=== PATIENT | male | born 1940 | race Caucasian/White ===

== ENCOUNTER 2020-10-30 08:38 | Emergency (ER) | payer MEDICARE, SELFPAY ==
[2020-10-30] VITALS (17 sets, daily range): BP systolic 131–179; BP diastolic 72–121; PULSE 55–94; RESP 12–30; TEMP 36.6–36.7; O2SAT 99–100
--- NOTE | 2020-10-30 08:54 | ED.GENADULT ---
HPI - General Adult General Chief complaint: Arrhythmia/Palpitations Stated complaint: Heart Palpitations Time Seen by Provider: 10/30/20 08:54 History of Present Illness HPI narrative: 77-year-old gentleman lives on [facility] with a history of hyperlipidemia and reflux who denies any history of heart failure, myocardial infarction. He has been having increasing palpitations recently and was seen by his primary care physician at the [facility] in [place] with a Holter monitor placed with results indicating no significant pathology. A cardiology consult has been generated. Presents today complaining of being awakened from sleep at 2:00 a.m. with palpitations that have intermittently continued throughout the morning. He describes no specific pain dizziness orthopnea or dyspnea. He has not had recent fevers cough or chills. He describes no abdominal pain, fevers cough, chills, urinary abnormalities or constipation. Related Data Home Medications Medication Instructions Recorded Confirmed aspirin 81 mg tablet,delayed 81 mg PO DAILY 02/21/19 10/30/20 release (Adult Aspirin Regimen) pravastatin 20 mg tablet 20 mg PO DAILY 02/21/19 10/30/20 omeprazole 40 mg capsule,delayed 40 mg PO QAM 10/30/20 10/30/20 release Previous Rx's Medication Instructions Recorded metoprolol tartrate 25 mg tablet 12.5 mg PO BID PRN #20 tab 10/30/20 Allergies Allergy/AdvReac Type Severity Reaction Status Date / Time No Known Drug Allergies Allergy Verified 02/21/19 14:51 Review of Systems Review of Systems Narrative: Remainder of complete review of systems is otherwise unremarkable except for that included in the HPI. Patient History Medical History (Updated 10/30/20 @ 13:07 by Maggie Gentile MD) GERD (gastroesophageal reflux disease) High cholesterol Social History Smoking Status: Former smoker Exam Narrative Exam Narrative: General: Healthy appearing, in no acute distress. Able to give a complete and coherent history. Well-nourished well-developed HEENT: Moist mucous membranes, normal sclera with reactive pupils, Neck: No JVD, supple Respiratory: Lungs are clear to auscultation, no wheezing no rales no rhonchi. Full and symmetrical air movement Cardiac: Irregular with multiple PVCs no murmurs no bruits Abdomen: Soft, nontender, good bowel tones, no flank pain Skin: Warm and dry, no rashes Neurologic: Grossly neurologically intact with no obvious asymmetries or abnormalities Extremities: No trauma, well perfused Psych: Cooperative, appropriate insight and affect Initial Vital Signs Initial Vital Signs: Vital Signs Blood Pressure 176/104 H 10/30/20 08:43 Course Orders Ordered: ED Orders 10/30/20 08:55 XR chest 1V Stat 10/30/20 11:57 Complete Blood Count AUTO DIFF Stat Comprehensive Metabolic Panel Stat Magnesium Stat Troponin I Stat Discontinued Medications Metoprolol Tartrate (Metoprolol Tartrate 5 Mg/5 Ml Inj) 5 mg IV Q5M MADIHA Stop: 10/30/20 09:11 Last Admin: 10/30/20 11:35 Dose: Not Given Documented by: Admin: 10/30/20 11:35 Dose: Not Given Documented by: Admin: 10/30/20 09:29 Dose: 5 mg Documented by: FAITH Vital Signs Vital signs: Vital Signs - 8 hr 10/30/20 08:43 10/30/20 08:44 10/30/20 08:45 Temperature 97.8 F Pulse Rate 94 H 90 Respiratory Rate 12 12 Blood Pressure 176/104 H 176/104 H Pulse Oximetry 100 100 10/30/20 08:50 10/30/20 09:00 10/30/20 09:01 Temperature 98.0 F Pulse Rate 79 84 80 Respiratory Rate 14 22 24 Blood Pressure 152/77 H 152/77 H Pulse Oximetry 99 99 10/30/20 09:30 10/30/20 09:32 10/30/20 10:00 Temperature Pulse Rate 80 67 59 L Respiratory Rate 27 H 30 H 23 Blood Pressure 153/121 H 165/83 H 179/81 H Pulse Oximetry 99 99 99 10/30/20 10:30 10/30/20 11:00 10/30/20 11:01 Temperature Pulse Rate 56 L 55 L 56 L Respiratory Rate 20 16 19 Blood Pressure 166/76 H 159/79 H Pulse Oximetry 99 99 99 10/30/20 11:37 10/30/20 12:00 10/30/20 12:30 Temperature Pulse Rate 57 L 66 61 Respiratory Rate 23 22 23 Blood Pressure Pulse Oximetry Medical Decision Making Lab Data Result diagrams: 10/30/20 11:57 10/30/20 11:57 Labs: Lab Results 10/30/20 10/30/20 Range/Units 11:57 11:57 WBC 4.0 L (4.5-11.0) X10^3/uL RBC 4.87 (4.5-5.9) X10^6/uL Hgb 15.5 (13.5-17.5) g/dL Hct 45.4 (41-53) % MCV 93.1 (80-100) fL MCH 31.7 (26-34) PG MCHC 34.1 (30-36) % RDW 13.1 (11.6-14.8) % Plt Count 187 (150-400) X10^3/uL Neut % (Auto) 56.5 (50-75) % Lymph % (Auto) 30.7 (25-40) % [place] % (Auto) 11.2 (3-14) % Eos % (Auto) 0.9 L (2-4) % Baso % (Auto) 0.7 (0-2) % Neut # (Auto) 2300 (1954-2511) /uL Lymph # (Auto) 1200 (2463-5809) /uL [place] # (Auto) 400 (0-900) /uL Eos # (Auto) 0 (0-450) /uL Baso # (Auto) 0 (0-100) /uL Sodium 139 (137-145) mmol/L Potassium 4.7 (3.4-5.1) mmol/L Chloride 104 (98-107) mmol/L Carbon Dioxide 30 (22-32) mmol/L BUN 14 (9-20) mg/dL Creatinine 0.76 (0.66-1.25) mg/dL Estimated GFR > 60.0 (>60) mL/min BUN/Creatinine Ratio 18.4 (6-22) Glucose 107 (80-110) mg/dL Calcium 9.1 (8.4-10.2) mg/dL Magnesium 1.9 (1.6-2.3) mg/dL Total Bilirubin 0.7 (0.2-1.3) mg/dL AST 27 (17-59) IU/L ALT 17 (<50) IU/L Alkaline Phosphatase 62 (38-126) U/L Troponin I < 0.012 (0.01-0.034) ng/mL Total Protein 7.2 (6.3-8.2) g/dL Albumin 4.2 (3.5-5.0) g/dL Globulin 3.0 (1.7-4.1) g/dL Albumin/Globulin Ratio 1.4 (1.0-2.8) Imaging Data Chest x-ray: Radiologist's Impression: FINDINGS: Surgical changes and devices: None. Lungs and pleura: An incomplete inspiratory result is noted, causing a crowded appearance to the lung markings. No focal infiltrates are seen. No pneumothorax or significant pleural effusions are seen. Mediastinum: The cardiac contours are within normal limits. The aorta demonstrates calcification and tortuosity. Bones and chest wall: No suspicious bony lesions. Age-appropriate bony degenerative changes are seen. Mild levoconvex scoliotic curvature is noted. Remote left posterior rib fractures can be seen. Remote, healed bilateral mid clavicle fractures. Overlying soft tissues appear unremarkable. IMPRESSION: Limited portable chest examination, without a significant cardiopulmonary abnormality identified. Dictated by: Meliton Pizarro M.D. on 10/30/2020 at 8:14 ECG Data Interpretation: Sinus rhythm at a rate of 90 Frequent PVCs, at times bigeminy Nonspecific ST T wave abnormality MDM Narrative Medical decision making narrative: 80-year-old gentleman with palpitations since 2:00 a.m.. No actual chest pain. Noted to have frequent to very frequent PVCs. Workup is reassuring with no evidence of acute coronary syndrome or electrolyte abnormalities. No signs of congestive heart failure. He responded very well to 5 mg of IV metoprolol and the frequency of his PVCs has dramatically decreased. He is quite comfortable and is requesting home discharge. I do believe this is safe. Will give him a prescription for metoprolol 25 mg immediate release to use as needed significant palpitations. Will ask him to follow-up with his primary care physician. Discharge Plan Departure Patient Disposition: Home Clinical Impression: Ventricular premature beats Instructions: Premature Ventricular Beats Activity Restrictions/Additional Instructions: Thank you for coming in today Your having frequent PVCs, premature ventricular contractions, this is not a life-threatening rhythm abnormality. Your blood work was very reassuring. Your electrolytes, kidney function and studies looking for any type of heart attack or all negative. The x-ray of your chest was equally reassuring. Your responded very well to a small dose of metoprolol. This is a blood pressure and heart rate medication. I am going to give you a prescription for oral metoprolol to use only if you have recurrent episodes of palpitations. I would start with half a pill if you are symptomatic. A prescription for this was electronically transmitted to [facility] in [place]. I have given you a copy of your EKG to share with your primary care doctor or with the primer expeditor and drier to whom you have recently been referred If you have recurrent episodes, pain or shortness of breath associated with sweatiness please feel free to return to the ER and I am happy to re-evaluate Prescriptions: New metoprolol tartrate 25 mg tablet 12.5 mg PO BID PRN (Reason: palpitations ) Qty: 20 RF: 0 No Action pravastatin 20 mg tablet 20 mg PO DAILY RF: 0 aspirin [Adult Aspirin Regimen] 81 mg tablet,delayed release (DR/EC) 81 mg PO DAILY RF: 0 omeprazole 40 mg Capsule,Delayed Release(Dr/Ec) 40 mg PO QAM RF: 0
[2020-10-30] MEDS: METOPROLOL TARTRATE 5 MG/5 ML INJ IV (09:29)
[2020-10-30 12:02] LABS: Add Manual Diff / Slide Review NO; Basophils Absolute Auto 0 /uL (0-100); Basophils Percent Auto 0.7 % (0-2); Eosinophils Absolute Auto 0 /uL (0-450); Eosinophils Percent Auto 0.9 % (2-4); Hematocrit 45.4 % (41-53); Hemoglobin 15.5 g/dL (13.5-17.5); Lymphocytes Absolute Auto 1200 /uL (1100-4500); Lymphocytes Percent Auto 30.7 % (25-40); Mean Corpuscular HGB Conc 34.1 % (30-36); Mean Corpuscular Hemoglobin 31.7 PG (26-34); Mean Corpuscular Volume 93.1 fL (80-100); Monocytes Absolute Auto 400 /uL (0-900); Monocytes Percent Auto 11.2 % (3-14); Neutrophils Absolute Auto 2300 /uL (1500-7000); Neutrophils Percent Auto 56.5 % (50-75); Platelet Count 187 X10^3/uL (150-400); Red Blood Cell Count 4.87 X10^6/uL (4.5-5.9); Red Cell Distribution Width 13.1 % (11.6-14.8)
[2020-10-30 12:33] LABS: Alanine Aminotransferase 17 IU/L (<50); Albumin 4.2 g/dL (3.5-5.0); Albumin Globulin Ratio 1.4 (1.0-2.8); Alkaline Phosphatase 62 U/L (38-126); Aspartate Aminotransferase 27 IU/L (17-59); BUN Creatinine Ratio 18.4 (6-22); Bilirubin Total 0.7 mg/dL (0.2-1.3); Blood Urea Nitrogen 14 mg/dL (9-20); Calcium 9.1 mg/dL (8.4-10.2); Carbon Dioxide 30 mmol/L (22-32); Chloride 104 mmol/L (98-107); Estimated Glomerular Filt Rate > 60.0 mL/min (>60); Glucose 107 mg/dL (80-110); HEMOLYSIS < 15 (0-50); Magnesium 1.9 mg/dL (1.6-2.3); Potassium 4.7 mmol/L (3.4-5.1); Sodium 139 mmol/L (137-145); Total Protein 7.2 g/dL (6.3-8.2)
[2020-10-30 12:43] LABS: Troponin I < 0.012 ng/mL (0.01-0.034)
== END 2020-10-30 13:17 | disposition home or self-care (01) ==
PROVIDERS: Emergency Provider Emergency Medicine
DX: I49.3 Ventricular premature depolarization (principal); I25.2 Old myocardial infarction
CPT/HCPCS: 36415; 71045; 80053; 83735; 84484; 85025; 93005; 99284

== ENCOUNTER → 2022-01-21 09:49 | Outpatient (CLI) | payer OTHER, SELFPAY ==
[2022-01-21 11:02] LABS: Add Manual Diff / Slide Review NO; Basophils Absolute Auto 0 /uL (0-100); Basophils Percent Auto 0.7 % (0-2); Eosinophils Absolute Auto 200 /uL (0-450); Hematocrit 44.5 % (41-53); Hemoglobin 14.9 g/dL (13.5-17.5); Lymphocytes Absolute Auto 2000 /uL (1100-4500); Lymphocytes Percent Auto 40.2 % (25-40); Mean Corpuscular HGB Conc 33.5 % (30-36); Mean Corpuscular Hemoglobin 31.3 PG (26-34); Mean Corpuscular Volume 93.5 fL (80-100); Monocytes Absolute Auto 600 /uL (0-900); Monocytes Percent Auto 11.9 % (3-14); Neutrophils Absolute Auto 2200 /uL (1500-7000); Neutrophils Percent Auto 44.2 % (50-75); Platelet Count 216 X10^3/uL (150-400); Red Blood Cell Count 4.76 X10^6/uL (4.5-5.9); Red Cell Distribution Width 13.1 % (11.6-14.8)
[2022-01-21 11:25] LABS: Alanine Aminotransferase 17 IU/L (<50); Albumin 4.2 g/dL (3.5-5.0); Albumin Globulin Ratio 1.3 (1.0-2.8); Alkaline Phosphatase 65 U/L (38-126); Aspartate Aminotransferase 22 IU/L (17-59); BUN Creatinine Ratio 19.4 (6-22); Bilirubin Total 0.7 mg/dL (0.2-1.3); Blood Urea Nitrogen 18 mg/dL (9-20); Calcium 9.1 mg/dL (8.4-10.2); Carbon Dioxide 29 mmol/L (22-32); Chloride 102 mmol/L (98-107); Cholesterol 191 mg/dL (140-199); Estimated Glomerular Filt Rate > 60 mL/min (>60); Globulin 3.2 g/dL (1.7-4.1); Glucose 96 mg/dL (80-110); HDL Cholesterol 47 mg/dL (40-60); HEMOLYSIS < 15 (0-50); LDL Cholesterol Calculated 127 mg/dL (<100); Potassium 4.2 mmol/L (3.4-5.1); Sodium 138 mmol/L (137-145); Total Protein 7.4 g/dL (6.3-8.2); Triglycerides 86 mg/dL (35-150)
[2022-01-21 11:45] LABS: Prostate Specific Antigen 4.03 ng/mL (0.10-4.00)
== END ==
PROVIDERS: PCP Family Medicine; Referring Provider Family Medicine; Visit Provider Family Medicine
DX: E78.00 Pure hypercholesterolemia, unspecified (principal); N40.1 Benign prostatic hyperplasia with lower urinary tract symptoms; I10 Essential (primary) hypertension; K21.9 Gastro-esophageal reflux disease without esophagitis; N13.8 Other obstructive and reflux uropathy
CPT/HCPCS: 36415; 80053; 80061; 84153; 85025

== ENCOUNTER → 2022-01-28 10:19 | Outpatient (CLI) | payer OTHER, SELFPAY ==
[2022-01-28 17:01] LABS: Prostate Specific Antigen 4.47 ng/mL (0.10-4.00)
== END ==
PROVIDERS: PCP Family Medicine; Referring Provider Family Medicine; Visit Provider Family Medicine
DX: N40.1 Benign prostatic hyperplasia with lower urinary tract symptoms (principal); N13.8 Other obstructive and reflux uropathy
CPT/HCPCS: 36415; 84153

== ENCOUNTER → 2022-01-31 12:28 | Outpatient (CLI) | payer OTHER, SELFPAY ==
[2022-01-31 16:03] LABS: Appearance Urine UA CLEAR; Bilirubin Urine UA NEGATIVE (NEGATIVE); Color Urine UA YELLOW; Glucose Urine UA NEGATIVE (Negative); Ketones Urine UA NEGATIVE (NEGATIVE); Leukocyte Esterase Urine UA NEGATIVE (NEGATIVE); Nitrite Urine UA NEGATIVE (Negative); Occult Blood Urine UA NEGATIVE (Negative); Protein Urine UA 1+ (Negative); Urobilinogen Urine UA 0.2 E.U./dL (0.2); pH Urine UA 6.5 (4.5-8.0)
[2022-01-31 16:30] LABS: Bacteria Urine None Seen; Culture Indicated Urine Cult Not Indicated; RBC Urine None Seen (0-5/HPF); Squamous Epithelial Cell Urine None Seen (0-5/HPF); WBC Urine None Seen (0-5/HPF)
== END ==
PROVIDERS: PCP Family Medicine; Referring Provider Internal Medicine; Visit Provider Internal Medicine
DX: N13.8 Other obstructive and reflux uropathy (principal); N40.1 Benign prostatic hyperplasia with lower urinary tract symptoms; R97.20 Elevated prostate specific antigen [PSA]
CPT/HCPCS: 81001

== ENCOUNTER → 2022-02-19 11:55 | Outpatient (CLI) | payer OTHER, SELFPAY ==
[2022-02-20 10:22] LABS: PSA Free % 16.4 % (.); PSA, Total 3.3 ng/mL (0.0-4.0)
== END ==
PROVIDERS: PCP Family Medicine; Referring Provider Internal Medicine; Visit Provider Internal Medicine
DX: R97.20 Elevated prostate specific antigen [PSA] (principal)
CPT/HCPCS: 36415; 84153; 84154

== ENCOUNTER → 2022-06-09 08:34 | Outpatient (CLI) | payer OTHER, SELFPAY ==
[2022-06-09 09:06] LABS: Add Manual Diff / Slide Review NO; Basophils Absolute Auto 0 /uL (0-100); Basophils Percent Auto 0.6 % (0-2); Eosinophils Absolute Auto 100 /uL (0-450); Eosinophils Percent Auto 2.4 % (2-4); Hematocrit 43.8 % (41-53); Lymphocytes Absolute Auto 2100 /uL (1100-4500); Mean Corpuscular HGB Conc 34.2 % (30-36); Mean Corpuscular Hemoglobin 31.5 PG (26-34); Mean Corpuscular Volume 92.2 fL (80-100); Monocytes Absolute Auto 700 /uL (0-900); Monocytes Percent Auto 12.7 % (3-14); Neutrophils Absolute Auto 2700 /uL (1500-7000); Neutrophils Percent Auto 47.3 % (50-75); Platelet Count 201 X10^3/uL (150-400); Red Blood Cell Count 4.75 X10^6/uL (4.5-5.9); White Blood Cell Count 5.8 X10^3/uL (4.5-11.0)
[2022-06-09 09:16] LABS: Alanine Aminotransferase 17 IU/L (<50); Albumin 3.8 g/dL (3.5-5.0); Albumin Globulin Ratio 1.1 (1.0-2.8); Alkaline Phosphatase 65 U/L (38-126); Aspartate Aminotransferase 19 IU/L (17-59); BUN Creatinine Ratio 24.7 (6-22); Bilirubin Total 0.7 mg/dL (0.2-1.3); Blood Urea Nitrogen 21 mg/dL (9-20); Carbon Dioxide 31 mmol/L (22-32); Chloride 100 mmol/L (98-107); Estimated Glomerular Filt Rate > 60 mL/min (>60); Globulin 3.4 g/dL (1.7-4.1); Glucose 98 mg/dL (80-110); HEMOLYSIS < 15 (0-50); Potassium 4.4 mmol/L (3.4-5.1); Sodium 136 mmol/L (137-145); Total Protein 7.2 g/dL (6.3-8.2)
[2022-06-09 09:44] LABS: Prostate Specific Antigen Scrn 4.48 ng/mL (0.1-4.0)
== END ==
PROVIDERS: PCP Family Medicine; Referring Provider Family Medicine; Visit Provider Family Medicine
DX: R97.20 Elevated prostate specific antigen [PSA] (principal); Z12.5 Encounter for screening for malignant neoplasm of prostate; I10 Essential (primary) hypertension; N13.8 Other obstructive and reflux uropathy; N40.1 Benign prostatic hyperplasia with lower urinary tract symptoms
CPT/HCPCS: 36415; 80053; 85025; G0103

== ENCOUNTER → 2022-07-31 16:47 | Outpatient (CLI) | payer OTHER, SELFPAY ==
--- NOTE | 2022-07-31 16:50 | DI.MRI.S_ITS ---
PROCEDURE: MR PELVIC PROSTATE PROTOCOL INDICATIONS: elevated PSA. BPH TECHNIQUE: Coronal HASTE, axial T1 FSE with fat saturation, 3-plane nonbreath-hold T2 FSE. After the administration of contrast, dynamic axial, delayed axial and coronal VIBE or 2-D FLASH with fat saturation through the pelvis. Optional diffusion weighted imaging and ADC may be performed. COMPARISON: None. FINDINGS: Image quality: Mild distortion is seen due to metallic artifact, however overall images remain diagnostic. Prostate: Gland size is 5 x 6.3 x 6.4 cm. Estimated volume is 105 cc. Transitional zone heterogenous nodules are present, either well encapsulated or mostly encapsulated, compatible with PI-RADS 1 or 2 likely BPH nodules. The prostate peripheral zones compressed by the transitional zone. Genitourinary system: Bladder is under distended and mildly trabeculated, most commonly due to chronic obstruction, although this would be better evaluated with cystoscopy. Prostatic urethra is deviated to the left. Bowel and peritoneum: There are colonic diverticula. The rectum appears unremarkable. No evidence of bowel obstruction or pathologic ascites. Nodes and vessels: No evidence of pathologic adenopathy or aneurysmal vessel in the pelvis. Soft tissues: Unremarkable pelvic wall. Bones: Right femoral hardware. No acute or suspicious osseous finding identified. There are degenerative changes. IMPRESSION: Prostatomegaly and sequela of BPH. PI-RADS 2. Other findings as above. Dictated by: Anthony Britton M.D. on 08/01/2022 at 8:36 Approved by: Anthony Britton M.D. on 08/01/2022 at 8:41
== END ==
PROVIDERS: PCP Family Medicine; Referring Provider Urology; Visit Provider Urology
DX: N40.1 Benign prostatic hyperplasia with lower urinary tract symptoms (principal); N13.8 Other obstructive and reflux uropathy; R97.20 Elevated prostate specific antigen [PSA]; N32.89 Other specified disorders of bladder; K57.90 Diverticulosis of intestine, part unspecified, without perforation or abscess without bleeding
CPT/HCPCS: 72197; A9579

== ENCOUNTER → 2022-12-23 13:29 | Outpatient (CLI) | payer OTHER, SELFPAY ==
[2022-12-23 14:51] LABS: Appearance Urine UA CLEAR; Bilirubin Urine UA NEGATIVE (NEGATIVE); Color Urine UA YELLOW; Glucose Urine UA NEGATIVE (Negative); Ketones Urine UA TRACE (NEGATIVE); Leukocyte Esterase Urine UA NEGATIVE (NEGATIVE); Nitrite Urine UA NEGATIVE (Negative); Occult Blood Urine UA NEGATIVE (Negative); Protein Urine UA NEGATIVE (Negative); Specific Gravity Urine UA 1.015 (1.000-1.035); pH Urine UA 6.5 (4.5-8.0)
[2022-12-23 14:53] LABS: Bacteria Urine None Seen; Culture Indicated Urine Cult Not Indicated; RBC Urine None Seen (0-5/HPF); Squamous Epithelial Cell Urine None Seen (0-5/HPF); WBC Urine None Seen (0-5/HPF)
[2022-12-25 09:40] LABS: PSA Free % 22.6 % (.)
== END ==
PROVIDERS: PCP Family Medicine; Referring Provider Urology; Visit Provider Urology
DX: R97.20 Elevated prostate specific antigen [PSA] (principal); N40.0 Benign prostatic hyperplasia without lower urinary tract symptoms
CPT/HCPCS: 36415; 81001; 84153; 84154

== ENCOUNTER → 2023-01-21 13:32 | Outpatient (CLI) | payer OTHER, SELFPAY ==
[2023-01-21 14:49] LABS: Hemoglobin A1C% w Est Avg Glu 5.4 % (4.0-6.0)
[2023-01-21 15:04] LABS: C-Reactive Protein Quant < 0.5 mg/dL (<1.0)
[2023-01-21 15:30] LABS: TSH w/ Reflex to FT4 2.08 uIU/mL (0.47-4.68)
[2023-01-21 15:49] LABS: Vitamin B12 307 pg/mL (239-931)
[2023-01-23 10:22] LABS: RPR Screen Non Reactive (Non Reactive)
[2023-01-26 15:55] LABS: ANA Screen, IFA Negative (.)
[2023-01-26 16:56] LABS: Albumin 3.6 g/dL (2.9-4.4); Alpha-1-Globulin 0.3 g/dL (0.0-0.4); Alpha-2-Globulin 0.8 g/dL (0.4-1.0); Gamma Globulin 1.2 g/dL (0.4-1.8); Globulin Total 3.4 g/dL (2.2-3.9)
== END ==
PROVIDERS: PCP Family Medicine; Referring Provider Nurse Practitioner; Visit Provider Nurse Practitioner
DX: G60.9 Hereditary and idiopathic neuropathy, unspecified (principal)
CPT/HCPCS: 36415; 82607; 83036; 84155; 84165; 84443; 86038; 86140; 86592

== ENCOUNTER → 2023-02-05 13:47 | Outpatient (CLI) | payer OTHER, SELFPAY ==
--- NOTE | 2023-02-05 12:00 | DI.MRI.S_ITS ---
PROCEDURE: MR LUMBAR SPINE WO CON INDICATIONS: Peripheral Neuropathy - suspect spinal stenosis TECHNIQUE: Noncontrast sagittal T1 spin echo and T2 fast echo, sagittal STIR, and T2 fast spin echo through the lumbar spine. In cases with scoliosis, additional coronal T2 fast spin echo may be performed. COMPARISON: None. FINDINGS: Image quality: Excellent. Alignment and Curvature: There is normal bony alignment. Bone Marrow: Multilevel chronic degenerative endplate changes. Edematous Modic type 1 degenerative endplate changes noted at L1-2, L3-4 and L5-S1. L1 wedge-shaped anterior height loss with marrow edema consistent with subacute compression fracture. No retropulsed fracture fragment. T11 vertebral body typical hemangioma. Spinal Cord: Conus medullaris terminates at the L1 level. Visualized cord demonstrates normal signal and size. Paraspinous Soft Tissues: No paravertebral masses. T12-L1: Degenerative changes without central or foraminal stenosis L1-L2: Disc space narrowing hypertrophic facet joints present. Mild central stenosis. Moderate bilateral foraminal stenosis L2-L3: Disc space narrowing with hypertrophic facet joints. Mild central stenosis. Moderate bilateral foraminal stenosis L3-L4: Disc space narrowing and circumferential disc bulge and hypertrophic facet joints. Moderate central stenosis. Moderate bilateral foraminal stenosis. L4-L5: Disc space narrowing with circumferential disc bulge present. Mild central stenosis. Moderate bilateral foraminal stenosis L5-S1: Disc space narrowing and circumferential disc bulge with mild central stenosis. Moderate left and severe right foraminal stenosis IMPRESSION: Multilevel degenerative disc disease and arthropathy results in varying degrees of central and foraminal stenosis including moderate central stenosis L3-4 and severe foraminal stenosis L5-S1 Subacute L1 compression fracture without retropulsed fracture fragment Approved by: Mark Price M.D. on 02/05/2023 at 16:12
== END ==
PROVIDERS: PCP Family Medicine; Referring Provider Physician Assistant; Visit Provider Physician Assistant
DX: G62.9 Polyneuropathy, unspecified (principal); M48.56XA Collapsed vertebra, not elsewhere classified, lumbar region, initial encounter for fracture; M48.062 Spinal stenosis, lumbar region with neurogenic claudication; M48.07 Spinal stenosis, lumbosacral region; M47.816 Spondylosis without myelopathy or radiculopathy, lumbar region; M51.36 Other intervertebral disc degeneration, lumbar region; M51.37 Other intervertebral disc degeneration, lumbosacral region; Z87.828 Personal history of other (healed) physical injury and trauma
CPT/HCPCS: 72148

== ENCOUNTER → 2023-03-02 10:06 | Outpatient (CLI) | payer OTHER, SELFPAY ==
--- NOTE | 2023-03-02 10:09 | DI.RAD.S_ITS ---
PROCEDURE: XR LUMBAR SPINE MIN 4V INDICATIONS: LOW BACK PAIN TECHNIQUE: 5 views of the lumbar spine were acquired, including bilateral oblique views. COMPARISON: [facility], MR, MR LUMBAR SPINE WO CON, 02/05/2023, 14:15. FINDINGS: Bones: 5 nonrib-bearing vertebrae are present. There is normal bony alignment. Previously seen mild L1 compression fracture appears less prominent radiographically. No suspicious bony lesions. Multilevel disc space narrowing degenerative endplate changes and multilevel facet hypertrophy are again seen throughout the lumbar spine. Orthopedic hardware is seen in the right proximal femur. Soft tissues: Overlying bowel gas pattern is normal. Aortic atherosclerotic calcifications are present. Oblique images: No pars defects. IMPRESSION: 1. Multilevel moderate to severe spondylosis. 2. L1 compression fracture appears less prominent on radiographs when compared to the MRI from 02/05/2023. No new compression fracture is seen. Approved by: Sundar Godoy M.D. on 03/02/2023 at 12:52
== END ==
PROVIDERS: PCP Family Medicine; Referring Provider Anesthesiology; Visit Provider Anesthesiology
DX: M48.062 Spinal stenosis, lumbar region with neurogenic claudication (principal); M47.26 Other spondylosis with radiculopathy, lumbar region; M51.16 Intervertebral disc disorders with radiculopathy, lumbar region; M48.56XA Collapsed vertebra, not elsewhere classified, lumbar region, initial encounter for fracture; G62.9 Polyneuropathy, unspecified
CPT/HCPCS: 72110; 99214

== ENCOUNTER → 2023-03-12 12:26 | Outpatient (CLI) | payer OTHER, SELFPAY ==
--- NOTE | 2023-03-12 12:27 | DI.RAD.S_ITS ---
PROCEDURE: XR CHEST 2V INDICATIONS: c/o L) upper chest ache bothersome TECHNIQUE: 2 views of the chest were acquired. COMPARISON: [facility], CR, XR CHEST 1V, 10/30/2020, 8:57. FINDINGS: Surgical changes and devices: None. Lungs and pleura: Lungs are clear. No pleural effusions or pneumothorax. Mediastinum: Mediastinal contours are normal. Heart size is normal. Bones and chest wall: No suspicious bony abnormalities. Soft tissues appear unremarkable. Upper thoracic kyphoplasty. IMPRESSION: No acute cardiopulmonary abnormality is seen. Dictated by: Trevon Zepeda M.D. on 03/12/2023 at 13:28 Approved by: Trevon Zepeda M.D. on 03/12/2023 at 13:31
== END ==
PROVIDERS: PCP Family Medicine; Referring Provider Family Medicine; Visit Provider Family Medicine
DX: R07.89 Other chest pain (principal)
CPT/HCPCS: 71046

== ENCOUNTER → 2023-04-02 09:21 | Outpatient (CLI) | payer OTHER, SELFPAY | LOC: PHYS 09:22 | PROVIDERS: Family Provider Family Medicine; PCP Family Medicine; Referring Provider Anesthesiology; Visit Provider Anesthesiology | DX: M54.16 Radiculopathy, lumbar region (principal); G62.9 Polyneuropathy, unspecified | CPT/HCPCS: 95886; 95910 ==

== ENCOUNTER → 2023-04-07 14:06 | Outpatient (CLI) | payer OTHER, SELFPAY ==
[2023-04-10 14:08] LABS: PSA Free % 18.6 % (.); PSA, Total 3.5 ng/mL (0.0-4.0)
== END ==
PROVIDERS: Family Provider Family Medicine; PCP Family Medicine; Referring Provider Urology; Visit Provider Urology
DX: R97.20 Elevated prostate specific antigen [PSA] (principal)
CPT/HCPCS: 84153; 84154

== ENCOUNTER 2023-06-15 13:09 | Day surgery (SDC) | payer OTHER, SELFPAY ==
--- NOTE | 2023-06-15 | PATH_ITS ---
[facility] Accession Number: [id number] No. of containers..02 Tissue . 01 Material submitted: . PART A: stomach - ANTRUM BIOPSY PART B: esophagus - MID ESOPHAGUS BIOPSY . 01 Diagnosis: A. Stomach, antrum, biopsy: Benign oxyntic gastric mucosa. No H. Pylori like organisms identified (on the H/E- stained sections). Negative for gastritis, intestinal metaplasia, dysplasia, or malignancy. - B. Esophagus, mid, biopsy: Benign squamous epithelium, negative for intraepithelial eosinophils. Negative for dysplasia and negative for malignancy. TXN 06/19/2023 1218 Local . 01 Comment: . . 01 Electronically signed: . Tawangie Awan MD, Pathologist NPI- [id number] . 01 Gross description: . Part A: ANTRUM BIOPSY: Received in formalin are 2 fragment(s) of beltran, soft tissue measuring 0.1 x 0.1 x 0.1 cm to 0.4 x 0.4 x 0.2 cm submitted entirely in 1 cassette(s) Part B: MID ESOPHAGUS BIOPSY: Received in formalin is 1 fragment(s) of beltran, soft tissue measuring 0.3 x 0.2 x 0.1 cm submitted entirely in 1 cassette(s) /KARLEE 06/16/2023 1903 Local . 01 Pathologist provided ICD-10: K21.9 . 01 CPT . 922530, 493725 Specimen Comment: A courtesy copy of this report has been sent to [phone] Performed at: 01 [facility] [address] [place] [address] [address], [place], [place] [id number] MD Quentin Durant MD Phone: [phone]
--- NOTE | 2023-06-15 13:59 | P.HP_ITS ---
History of Present Illness History of Present Illness Date Patient Seen: 06/15/23 Time Patient Seen: 13:59 Chief complaint: EGD Narrative: I reviewed the recent note by Clayton Bass. No significant changes. He is off proton pump inhibitor for about 2 weeks. He is trying to control his symptoms with ?fasting?. He has lost a couple of lb with this approach. Diagnostic EGD has been requested. [facility] Medical History Chest discomfort Lumbar degenerative disc disease Lumbar spondylosis Lumbar radiculopathy Incomplete emptying of bladder Lower urinary tract symptoms History of prostatitis Atrophic testicle Skin lesion of left upper extremity Elevated PSA BPH (benign prostatic hyperplasia) Hypertension GERD (gastroesophageal reflux disease) High cholesterol Surgical History Hx of appendectomy Social History marital status: unmarried,single number of children: 2 occupational status: other Smoking Status: Never smoker alcohol intake: never caffeine: Yes Type(s) of exercise: walking and bicycling frequency: 3-4 times per week Meds Home Medications and Allergies Home Medications Medication Instructions Recorded Confirmed Type pravastatin 20 mg tablet 20 mg PO BEDTIME #90 tabs 11/26/22 06/15/23 Rx vitamins A,C,Y-ezve-wldaww 2,148 2 tab PO BID 03/02/23 03/17/23 History mcg-113 mg-45 mg-17.4 mg tablet (PreserVision AREDS) lisinopril 20 mg tablet 20 mg PO DAILY 06/15/23 06/15/23 History omeprazole 20 mg capsule,delayed 20 mg PO DAILY 06/15/23 06/15/23 History release Allergies Allergy/AdvReac Type Severity Reaction Status Date / Time No Known Drug Allergies Allergy Verified 03/17/23 10:10 Review of Systems Review of Systems ROS: Yes All systems reviewed with the patient and are negative except as otherwise documented Assessment & Plan Assessment & Plan narrative: 82-year-old male with longstanding gastroesophageal reflux recently found to be refractory to proton pump inhibitor therapy. Diagnostic EGD is pursued today.
--- NOTE | 2023-06-15 14:01 | PM.PREOP ---
Pre-operative Note Interval Note History & Physical reviewed/Exam performed by Physician: Yes Changes to H&P: No ASA Class (for procedural sedation): II
[2023-06-15 14:06] VITALS: BP 165/86; PULSE 99; RESP 16; TEMP 36.4; O2SAT 99
[2023-06-15] MEDS: LACTATED RINGERS 1,000 ML 42 ML IV (14:16)
--- NOTE | 2023-06-15 14:53 | PM.OP.EGD ---
Operative Date/Time/Diagnoses Date of procedure: 06/15/23 Time of procedure: 14:54 Pre-op diagnosis: Refractory reflux/heartburn Post-op diagnosis: same Procedure & Clinicians Study performed: EGD with biopsies Same procedure as scheduled: Yes Indications: Refractory reflux and heartburn Surgeon: David Da Silva Procedure Notes SCOAP/Timeout: Done Procedure in detail: After the risks and benefits were explained, written and verbal informed consent was obtained. The patient was brought into the procedure room and placed into the left lateral decubitus position. Please see anesthesia notes for sedation details. The scope was introduced into the mouth through the bite block and advanced under direct visualization to the 2nd portion of the duodenum. The scope was slowly withdrawn carefully examining the mucosa for any defects or lesions. Retroflexed views were accomplished in the stomach. The stomach was decompressed, the scope was then removed from the patient who tolerated the procedure well. Sedation minutes: 7 Complications: none Impression: 1. Duodenal: Normal from the bulb through the 2nd portion. 2. Stomach: No ulcers no outlet obstruction no mass lesions. Retroflexed views of the LES were unremarkable. Mild erythema was noted throughout the antrum and biopsies were taken for exclusion of H pylori or other pathology. 3. Esophagus: The squamocolumnar junction correlated quite nicely with the top of the gastric folds. GEJ was at 40 cm from the incisors. No strictures no esophagitis. The lower esophageal sphincter mechanism was moderately patulous and it was easy to advance through into stomach. There were really no features seen endoscopically to account for the patient's refractory symptoms and I therefore took some biopsies from the midesophagus to exclude eosinophilic esophagitis. That said, I did not see any endoscopic features to suggest this. Endoscopic diagnosis 1. Mild gastropathy 2. Relaxed lower esophageal sphincter mechanism 3. Otherwise visually unremarkable EGD Post-procedure Plan for aftercare: 1. Await histology. 2. Advance diet as able. 3. Follow up GI clinic. Disposition: PACU
[2023-06-15 14:57] VITALS: BP 111/72; PULSE 68; RESP 17; TEMP 36.2; O2SAT 95
[2023-06-15 15:02] VITALS: BP 115/75; PULSE 70; RESP 18; O2SAT 97
[2023-06-15 15:07] VITALS: BP 122/64; PULSE 66; RESP 21; TEMP 36.8; O2SAT 95
[2023-06-15 15:11] VITALS: BP 130/79; PULSE 69; RESP 19; TEMP 36.9; O2SAT 95
[2023-06-15 15:38] VITALS: BP 130/79; PULSE 69; RESP 19; TEMP 36.9; O2SAT 95
--- NOTE | 2023-06-15 15:40 | SUR.PHASEII ---
Patient reported having a piece of metal in his mouth but upon inspection the piece of material was cream colored with edges of red/brown. Patient denied feeling that any teeth were broken and no missing pieces were noted after a superficial visualization of his teeth.
== END 2023-06-15 15:35 | disposition home or self-care (01) ==
PROVIDERS: Family Provider Family Medicine; PCP Family Medicine; Referring Provider Internal Medicine Gastroenterology; Visit Provider Internal Medicine Gastroenterology
PROC: 0DJ08ZZ Inspection of Upper Intestinal Tract, Via Natural or Artificial Opening Endoscopic (ICD-10-PCS; CPT 43239; principal; 2023-06-15 14:00)
DX: K21.9 Gastro-esophageal reflux disease without esophagitis (principal); K31.9 Disease of stomach and duodenum, unspecified; K22.89 Other specified disease of esophagus
CPT/HCPCS: 43239; J2704

== ENCOUNTER → 2023-06-24 08:30 | Outpatient (CLI) | payer OTHER, SELFPAY ==
[2023-06-24 09:45] LABS: Add Manual Diff / Slide Review NO; Basophils Absolute Auto 0 /uL (0-100); Basophils Percent Auto 0.7 % (0-2); Eosinophils Absolute Auto 200 /uL (0-450); Eosinophils Percent Auto 5.1 % (2-4); Hematocrit 42.3 % (41-53); Hemoglobin 14.4 g/dL (13.5-17.5); Lymphocytes Absolute Auto 1700 /uL (1100-4500); Lymphocytes Percent Auto 36.4 % (25-40); Mean Corpuscular HGB Conc 34.1 % (30-36); Mean Corpuscular Hemoglobin 31.4 PG (26-34); Monocytes Absolute Auto 600 /uL (0-900); Monocytes Percent Auto 13.1 % (3-14); Neutrophils Absolute Auto 2100 /uL (1500-7000); Neutrophils Percent Auto 44.7 % (50-75); Platelet Count 224 X10^3/uL (150-400); Red Blood Cell Count 4.59 X10^6/uL (4.5-5.9); Red Cell Distribution Width 13.5 % (11.6-14.8); White Blood Cell Count 4.7 X10^3/uL (4.5-11.0)
[2023-06-24 10:00] LABS: Alanine Aminotransferase 16 IU/L (<50); Albumin 4.2 g/dL (3.5-5.0); Albumin Globulin Ratio 1.5 (1.0-2.8); Alkaline Phosphatase 60 U/L (38-126); Aspartate Aminotransferase 23 IU/L (17-59); BUN Creatinine Ratio 11.8 (6-22); Bilirubin Total 0.8 mg/dL (0.2-1.3); Blood Urea Nitrogen 11 mg/dL (9-20); Calcium 9.2 mg/dL (8.4-10.2); Carbon Dioxide 31 mmol/L (22-32); Chloride 104 mmol/L (98-107); Estimated Glomerular Filt Rate > 60 mL/min (>60); Globulin 2.8 g/dL (1.7-4.1); Glucose 95 mg/dL (80-110); HEMOLYSIS < 15 (0-50); Potassium 4.6 mmol/L (3.4-5.1); Sodium 137 mmol/L (137-145)
[2023-06-26 14:29] LABS: PSA, Total 3.1 ng/mL (0.0-4.0)
== END ==
PROVIDERS: Urology; Family Provider Family Medicine; PCP Family Medicine; Referring Provider Family Medicine; Visit Provider Family Medicine
DX: I10 Essential (primary) hypertension (principal); R07.89 Other chest pain; K21.9 Gastro-esophageal reflux disease without esophagitis; R97.20 Elevated prostate specific antigen [PSA]
CPT/HCPCS: 36415; 80053; 84153; 84154; 85025

== ENCOUNTER → 2023-07-08 14:26 | Outpatient (CLI) | payer OTHER, SELFPAY ==
[2023-07-08 16:15] LABS: TSH w/ Reflex to FT4 1.75 uIU/mL (0.47-4.68)
[2023-07-08 16:34] LABS: Vitamin B12 718 pg/mL (239-931)
== END ==
PROVIDERS: Family Provider Family Medicine; PCP Family Medicine; Referring Provider Physician Assistant; Visit Provider Physician Assistant
DX: L29.9 Pruritus, unspecified (principal); Z11.59 Encounter for screening for other viral diseases
CPT/HCPCS: 36415; 82607; 84443; 86803

== ENCOUNTER → 2023-07-15 16:02 | Outpatient (CLI) | payer OTHER, SELFPAY | PROVIDERS: Family Provider Family Medicine; PCP Family Medicine; Visit Provider Urology | DX: N40.1 Benign prostatic hyperplasia with lower urinary tract symptoms (principal); N13.8 Other obstructive and reflux uropathy; R97.20 Elevated prostate specific antigen [PSA]; R39.9 Unspecified symptoms and signs involving the genitourinary system | CPT/HCPCS: 51741; 52000; 76872; 87086 ==

== ENCOUNTER 2023-09-01 13:23 | Day surgery (SDC) | payer OTHER, SELFPAY ==
--- NOTE | 2023-09-01 13:22 | PM.HP.1 ---
History of Present Illness History of Present Illness Date Patient Seen: 09/01/23 Time Patient Seen: 13:22 Chief complaint: Dx Colonoscopy Narrative: 82-year-old man here for diagnostic colonoscopy, positive cologuard. Last colonoscopy 10 years ago normal. No family history of colon cancer. No abdominal concerns today. COUNTS INCLUDE 234 BEDS AT THE [facility] Medical History Hesitancy Slow urinary stream Nocturia Benign prostatic hyperplasia with lower urinary tract symptoms Allergic dermatitis Chest discomfort Lumbar degenerative disc disease Lumbar spondylosis Lumbar radiculopathy Incomplete emptying of bladder Lower urinary tract symptoms History of prostatitis Atrophic testicle Skin lesion of left upper extremity Elevated PSA BPH (benign prostatic hyperplasia) Hypertension GERD (gastroesophageal reflux disease) High cholesterol Surgical History History of hip surgery (2014) History of esophagogastroduodenoscopy (EGD) (06/15/23) Hx of appendectomy (1954) Social History marital status: unmarried,single number of children: 2 occupational status: other Smoking Status: Former smoker alcohol intake: former caffeine: Yes Type(s) of exercise: walking and bicycling frequency: 3-4 times per week Meds Home Medications and Allergies Home Medications Medication Instructions Recorded Confirmed Type pravastatin 20 mg tablet 20 mg PO BEDTIME #90 tabs 11/26/22 09/01/23 Rx losartan 50 mg tablet 50 mg PO DAILY #30 tabs 07/08/23 09/01/23 Rx famotidine 20 mg tablet 20 mg PO BID #60 tabs 08/05/23 09/01/23 Rx Allergies Allergy/AdvReac Type Severity Reaction Status Date / Time No Known Drug Allergies Allergy Verified 09/01/23 13:40 Exam Narrative Exam Narrative: General adult man alert oriented no acute distress Chest nonlabored respiration Extremities warm well perfused Assessment & Plan Assessment and plan (1) Positive colorectal cancer screening using Cologuard test: Status: Acute Assessment & Plan narrative: Diagnostic colonoscopy indicated. Technical details were discussed. Risks, benefits, alternatives explained. Risks including but not limited to myocardial infarction, aspiration, bleeding, pain, missed lesion, incomplete examination, need for further radiographic studies, intestinal injury, and need for major abdominal surgery were discussed. All questions were answered to their satisfaction, and they are in agreement with this plan. Time-Based Coding :: [TOTAL MINUTES] spent with patient and on the chart (including review of chart, obtaining history, exam, reviewing outside data, placing orders, documenting exam and treatment plan, and counseling patient) on [DATE].
[2023-09-01] MEDS: LACTATED RINGERS 1,000 ML 42 ML IV (13:38)
[2023-09-01 13:42] VITALS: BP 153/82; PULSE 84; RESP 16; TEMP 36.1; O2SAT 97
[2023-09-01 14:53] VITALS: BP 85/57; PULSE 75; RESP 16; TEMP 36.6; O2SAT 95
[2023-09-01 14:58] VITALS: BP 88/56; PULSE 73; RESP 16; TEMP 36.6; O2SAT 95
--- NOTE | 2023-09-01 15:02 | P.OP.COLON_ITS ---
Operative Date/Time/Diagnoses Date of procedure: 09/01/23 Time of procedure: 15:02 Pre-op diagnosis: Positive Cologuard test Procedure & Clinicians Study performed: Diagnostic colonoscopy Same procedure as scheduled: Yes Indications: 82-year-old man with a positive Cologuard test Surgeon: Loc Coronel Procedure Notes Procedure in detail: The history and physical was performed/updated and the patient is ASA class is 2. The procedure was discussed in detail with the patient. Potential risks complications including infection, bleeding, missed diagnosis, perforation, need for surgery, and were explained. Their questions were answered and informed consent was obtained. Patient was brought to the procedure room and placed standard monitoring equipment. The patient's vital signs were monitored continuously throughout the entire procedure. Prior to starting time-out was performed. The patient was placed in the left lateral recumbent position. Procedural sedation was administered by anesthesia. Examination began with a thorough inspection of the perianal area there was no evidence of fissures, fistulae, external hemorrhoids or cutaneous malignancy. The colonoscopy scope was then placed into the anal canal and was advanced to the cecum, which was identified by the ileocecal valve, the appendiceal orifice and the confluence of the taenia. The scope was then slowly withdrawn examining colon thoroughly in all directions, irrigating it of any residual stool. The scope was retroflexed within the rectum The patient tolerated the procedure well. They will be discharged once criteria are met. The prep was of fair quality. The withdrawl time was 6 minutes. FINDINGS * No polyps or masses * Diverticulosis of descending colon Specimen(s): none sent Impression: Diverticulosis Post-procedure Recommendations: High fiber diet Plan for aftercare: No further colonoscopy necessary Disposition: same day surgery
[2023-09-01 15:05] VITALS: BP 92/62; PULSE 68; RESP 17; TEMP 36.6; O2SAT 96
[2023-09-01 15:10] VITALS: BP 100/65; PULSE 83; RESP 20; TEMP 36.6; O2SAT 97
[2023-09-01 15:21] VITALS: BP 110/71; PULSE 83; RESP 15; TEMP 36.5; O2SAT 97
== END 2023-09-01 15:33 | disposition home or self-care (01) ==
PROVIDERS: Family Provider Family Medicine; PCP Family Medicine; Referring Provider Surgery; Visit Provider Surgery
PROC: 0DJD8ZZ Inspection of Lower Intestinal Tract, Via Natural or Artificial Opening Endoscopic (ICD-10-PCS; CPT 45378; principal; 2023-09-01 14:15)
DX: Z12.11 Encounter for screening for malignant neoplasm of colon (principal); R19.5 Other fecal abnormalities; K57.30 Diverticulosis of large intestine without perforation or abscess without bleeding
CPT/HCPCS: G0121; J2704

== ENCOUNTER → 2023-10-31 10:14 | Outpatient (CLI) | payer OTHER, SELFPAY ==
[2023-11-01 08:10] LABS: PSA Free % 18.1 % (.); PSA, Total 4.7 ng/mL (0.0-4.0)
== END ==
LOC: LAB 10:15
PROVIDERS: Family Provider Family Medicine; PCP Family Medicine; Referring Provider Urology; Visit Provider Urology
DX: N40.1 Benign prostatic hyperplasia with lower urinary tract symptoms (principal); R35.1 Nocturia
CPT/HCPCS: 36415; 84153; 84154

== ENCOUNTER 2023-11-10 07:07 | Day surgery (SDC) | payer OTHER, SELFPAY ==
[2023-08-21 14:59] VITALS: BMI 22.1
[2023-11-10] VITALS (14 sets, daily range): BP systolic 128–159; BP diastolic 76–107; PULSE 58–91; RESP 12–18; TEMP 36.1–36.7; O2SAT 93–100; BMI 22.9
--- NOTE | 2023-11-10 | PATH_ITS ---
[facility] Accession Number: [id number] No. of containers..01 Tissue . 01 Material submitted: . prostate - PROSTATE CHIPS . 01 Diagnosis: PROSTATE CHIPS, TRANSURETHRAL PROSTATE TISSUE RESECTION: Benign prostatic tissue (7 grams) with fibromuscular stromal hypertrophy in a background of degenerative changes, infarction and hemorrhage. Benign urothelial tissue also present. Negative for high-grade prostatic intraepithelial neoplasia and invasive carcinoma. MRV 11/12/2023 1510 Local . 01 Electronically signed: . Cat Ram MD, Pathologist NPI- [id number] . 01 Gross description: . Received in formalin with two patient identifiers and prostate chips, are multiple beltran soft tissue fragments admixed with hemorrhagic material weighing 7 grams and aggregating to 4.5 x 3.8 x 1.9 cm. Submitted entirely in A1-A5. ([id number]) /MRV 11/11/2023 1056 Local . 01 Pathologist provided ICD-10: N40.1, N32.0 . 01 CPT . 287546 Specimen Comment: A courtesy copy of this report has been sent to [phone] Performed at: [address] [facility] [facility], [place], [place] [id number] MD Quentin Durant MD Phone: [phone]
[2023-11-10] MEDS: LACTATED RINGERS 1,000 ML 42 ML IV ×2 (07:41→12:14)
--- NOTE | 2023-11-10 07:41 | PM.PREOP ---
Pre-operative Note COVID-19 COVID-19 status: Not tested Interval Note History & Physical reviewed/Exam performed by Physician: Yes Changes to H&P: No
[2023-11-10] MEDS: CEFAZOLIN 2 GM/100 ML PREMIX 100 ML IV (09:26)
--- NOTE | 2023-11-10 09:30 | SUR.OPER ---
Lithotomy on padded OR bed, head on pillow, arms secured on padded arm boards at <90 degrees abduction. Legs secured in padded yellow fins stirrups.
--- NOTE | 2023-11-10 11:04 | PM.OP.1 ---
Procedure & Clinicians Procedure: 1. Aquablation 2. Transrectal ultrasound of prostate 3. Transurethral resection of prostate with fulguration. 4. Hutchinson catheter placement Same procedure as scheduled: Yes Indications: This is an 83-year-old gentleman who presented with profound complaints of benign prostatic hyperplasia with lower urinary tract symptoms. He was failing medical management and through workup was found to have prostate that was 118 g a peak flow on uroflow in the 5 range and obstructing prostate at cystoscopy. He presents at this time for Aquablation to treat his outlet obstructive symptoms benign prostatic hyperplasia with lower urinary tract symptoms. He is failing medical management. Surgeon: Omar Vega Click Yes if Unassisted: Yes Anesthesia Type: General Operative Notes Findings: Urethral meatus is normal urethra is normal along its length. Sphincter as well coapted in the prostate exhibits marked obstructive character with bulging into the bladder but no true median lobe. Ureteral orifices in normal position with clear efflux. There was severe trabeculation cellules no other abnormality noted within the bladder. Total time truss the catheter was approximately 54 minutes. Aquablation resection time was right at 8 minutes and time with the resectoscope and fulguration was right at 30-32 minutes. At the end of the procedure all prostate chips had been removed and a [place] three-way hematuria catheter 30 cc balloon with 45 cc of sterile water in the balloon to gravity drainage. Closure Type: not applicable Specimen(s): other (Prostate chips) Prosthetic devices, grafts, tissues, transplants, or devices: 24 [place] three-way hematuria catheter 30 cc balloon with 45 cc of sterile water in the balloon. Applied: catheter Estimated Blood Loss (mL): 50 Blood products transfused: none Procedure in detail: Procedure in detail: After informed consent was obtained, the patient was identified brought to the operating room where he was placed supine position on the table. Once there anesthesia was induced and maintained. Ensuring an adequate level of anesthesia patient was transitioned to the lithotomy position where he was prepped, after time-out, ensuring an adequate level of anesthesia, and administration of antibiotics the patient had 60 cc of ultrasound gel instilled within the rectum and the ultrasound probe was instilled in the rectum. The trust stepper had been mounted to the articulating arm and secured to the bed. The ultrasound probe was then attached to the stepper and the probe was put in place it was aligned and confirmation made that the prostate was centered and aligned using both the transverse and longitudinal view. The bladder neck verumontanum and prostate landmarks were identified. With the ultrasound in place the patient was then draped in his sterile fashion and prepared for Transurethral surgery. At this point the [place] aqua beam handpiece was inserted through the urethra prostate and into the bladder. Cystoscopy was performed as it was inserted the level of the external sphincter, verumontanum and bladder neck were noted via the ultrasound and direct vision. The aqua beam handpiece was then secured to the hand piece articulating arm which he had been attached to the bed. The handpiece and ultrasound probe were determined to be parallel and colinear. The aqua beam nozzle was then confirmed to be centered and anterior to the bladder neck. The cystoscope was then retracted and the prostate verumontanum and external sphincter were identified. The tip of the scope was positioned proximal to the external sphincter. Again reconfirmed alignment of the truss probe and Aquablation beam handpiece was performed and compression applied with a truss probe. Horizontal alignment of the hand piece water jet was then confirmed and performed. Treatment planning was then performed by using real-time trust visualization. Again the treatment planning including the contour of the prostate the depth and radial angles of resection were defined in the transverse you. In the sagittal view the aqua beam nozzle was identified in his position registered with the with software. The tip of the scope was then identified in the excursion of resection determine. Then the contours were marked to include the start of tissue bladder neck mid prostate and verumontanum. Again adjustments were made were in appropriate treatment contour was performed. With these confirmed Aquablation resection was performed for a 1st pass. A 2nd pass was performed with a adjustments being made to the contour with real-time ultrasound and aid of the prime mode of the water jet. With these adjustments made the treatment plan was confirmed and again the Aquablation resection was performed. With the 2nd pass having been performed there was a total Aquablation time of 8 minutes. Once the resection was complete the cystoscope was advanced to the tip of the hand piece and the scope backed out under direct vision. At this point a resectoscope was inserted and an Ellik evacuator Ellik evacuator used to evacuate clot and clear of the bladder. Then at the bladder neck after identifying the ureteral orifices from the 2:00 a.m. to the 11 o'clock position sequentially around the bladder neck the bladder neck tissue was resected and points of bleeding controlled with electrocautery. Attention was then turned anterior where there worsened bleeding and these were controlled with the with the electrocautery also. At the level of the veru there were 2 small arteries which were bleeding which were again controlled at this point hemostasis appeared good and the Navita evacuator was used to remove the prostate chips and any remaining clots. The prostatic fossa was once again inspected for any arterial bleeding the bladder neck sequentially and hemostasis appeared to be good the ureteral orifices were once again visualized the bladder was left full the scope removed and the patient had a vigorous stream. Then with the aid of ultrasound and a catheter guide the [place] catheter was put in place the balloon filled with 14 cc of sterile water and placed to gravity drainage and continuous bladder irrigation. At this point the patient was awakened having tolerated the procedure well transferred to the postanesthesia care unit for recovery there were no complications. The chips were forwarded to pathology. Again the patient was transferred with the catheter in place a continuous bladder irrigation running Complications: none Post-operative Condition: stable Disposition: PACU Plan for aftercare: Patient will be observed in the postanesthesia care unit and if the color the urine is acceptable the patient will be discharged to home if not patient will be sent up to the [facility]arcia to continue continuous bladder irrigation.
[2023-11-10] MEDS: OXYCODONE IR 5 MG TABLET PO (11:13)
[2023-11-10] MEDS: ACETAMINOPHEN IV 1,000 MG/100 ML VIAL 400 MG IV (11:17)
[2023-11-10] MEDS: PHENAZOPYRIDINE 100 MG TABLET 200 MG PO (11:34)
[2023-11-10] MEDS: HYOSCYAMINE 0.125 MG TABLET PO (11:36)
[2023-11-10] MEDS: OXYBUTYNIN 5 MG TABLET PO (11:38)
[2023-11-10] MEDS: ACETAMINOPHEN 325 MG TABLET 650 MG PO (16:22)
[2023-11-10] MEDS: LOSARTAN 50 MG TABLET PO (16:23)
[2023-11-10] MEDS: PANTOPRAZOLE DR 20 MG TABLET PO (20:27)
[2023-11-10] MEDS: PRAVASTATIN 20 MG TABLET PO (20:28)
[2023-11-11] MEDS: LACTATED RINGERS 1,000 ML 42 ML IV (03:21)
--- NOTE | 2023-11-11 06:52 | PM.PN.1 ---
Subjective Subjective Date Patient Seen: 11/11/23 Time Patient Seen: 06:52 Interval history: This 83-year-old male had a good night. Had minimal pain his urine has cleared to light pink with minimal CBI flow. He is tolerating a regular diet ambulating without difficulty and feels his normal self. His blood pressure has returned to a normal state with the administration of his appropriate medicines. And he is ready for discharge. So will discharge to home to follow up my office tomorrow morning. Exam Vital Signs (past 8 hours): Oxygen Delivery Method Room Air Oxygen Flow Rate 0 Narrative Exam Narrative: General: This is an awake, alert male lying in his bed. Who appears comfortable abdomen soft nontender with normal bowel tones Hutchinson catheter is in place with light pink to clear urine. Extremities are nontender. [facility] Medical History Hesitancy Slow urinary stream Nocturia Benign prostatic hyperplasia with lower urinary tract symptoms Allergic dermatitis Chest discomfort Lumbar degenerative disc disease Lumbar spondylosis Lumbar radiculopathy Incomplete emptying of bladder Lower urinary tract symptoms History of prostatitis Atrophic testicle Skin lesion of left upper extremity Elevated PSA BPH (benign prostatic hyperplasia) Hypertension GERD (gastroesophageal reflux disease) High cholesterol Surgical History History of hip surgery (2014) History of esophagogastroduodenoscopy (EGD) (06/15/23) Hx of appendectomy (1954) Social History marital status: unmarried,single number of children: 2 household members: none occupational status: other Smoking Status: Former smoker alcohol intake: former caffeine: Yes Type(s) of exercise: walking and bicycling frequency: 3-4 times per week Assessment & Plan Assessment and plan (1) Benign prostatic hyperplasia with lower urinary tract symptoms: Qualifiers: Lower urinary tract symptom detail: nocturia Qualified Code(s): N40.1 - Benign prostatic hyperplasia with lower urinary tract symptoms; R35.1 - Nocturia Status: Acute Plan Assessment and plan: 1. Patient morning after surgery from Aquablation doing well urine is cleared patient will be discharged to home. Patient will go home with his Hutchinson catheter to follow-up with my office in the morning for likely catheter removal. Patient's urine is light pink patient is instructed on care of the Hutchinson. He is instructed that he may have increase in blood. Time-Based Coding :: [TOTAL MINUTES] spent with patient and on the chart (including review of chart, obtaining history, exam, reviewing outside data, placing orders, documenting exam and treatment plan, and counseling patient) on [DATE].
--- NOTE | 2023-11-11 09:12 | CM.DANOTE ---
Initial DCP Assessment Visit Note Reviewed EMR and team rounds for status updates. Met with pt and spouse at bedside to introduce self and role, pt was found to be alert/oriented, and sitting upright in bed, able to discuss his plan for d/c home and f/u OP with Dr. Vgea. He lives independently in his own home with his spouse here in [place]. His spouse will transport him home later today after Dr. Vega clears him for d/c. Payor: [facility] Adv Attending: Dr. Vega Pt is a 83 year-old M post-op day 1 from an Aquablation procedure. He presented with complaints of significant bladder outlet obstruction, benign prostatic hyperplasia, and lower urinary tract symptoms during his consultation in Urology. He will f/u with Dr. Vega OP tomorrow for blanchard removal and further assessment. DCP will continue to monitor for any further evolving needs, however he declines any assistance needs from CM at this time. Discharge Planning/Care Management Advanced directive, confirm from FAMILY Start: 11/10/23 14:15 Freq: Q24H Status: Active Protocol: Document 11/10/23 14:22 AKP (Rec: 11/10/23 14:23 AKP [id number]) Advance Directive, confirm on record Time 14:23 Person contacted patient to bring in post d/c Copy received No CM Discharge Assessment Start: 11/11/23 09:04 Freq: Status: Active Protocol: Document 11/11/23 09:04 DPL (Rec: 11/11/23 09:12 DPL [id number]) Discharge Planning Assessment Assigned Hides Soaker PORTILLO Galvan Advance Directives? Yes Advance Directives on File No History Provided By Patient,Significant Other, Medical Record Has Patient been admitted in last 30 No days? Prior Living Arrangements House Household Members spouse Type of transporation used prior to Drives own vehicle admit Independent with ADL's Yes Is patient alert and oriented? Yes Caregiver for Another No Comment OP Urology Barriers to Discharge No Discharge Plan Home Transportation Arrangement Spouse Referrals Initiated None needed Review Status In Process Please Provide Date Initial DC 11/11/23 Assessment Was Performed Pre-Anesthesia Assessment Start: 08/21/23 14:59 Freq: Status: Complete Protocol: Document 08/21/23 14:59 CAB (Rec: 08/21/23 15:08 CAB [id number]) Pre-Anesthesia Assessment Preferred Name Shailesh Patient Information Reviewed Via Chart Review Primary Care Provider Randal Olvera Seen Specialist in Last 12 Months Yes Specialist Seen Control Integration Engineer,Urologist Primary Language Martiniquais Commercial Airplane Pilot Required No Height 177.8 cm Weight 69.853 kg Body Mass Index (BMI) 22.1 Hearing Ability Hearing Impaired Hx Anesthesia Reactions No Hx Family Anesthesia Reaction No Hx Malignant Hyperthermia No Hx Blood Transfusion Reaction No Anesthesia Review Requested No Rod Buster No alcohol intake former Smoking Status Former smoker how long ago did patient quit smoking 1965 Substance Use Type does not use Patient is completely paralyzed or No completely immobile Mental Status Oriented to own ability Hx Sleep Apnea No CPAP/BIPAP use not prescribed Currently Taking a Beta Aguilar No Anti-Coagulant Therapy No Cardiac Testing No Hx Pacemaker/ICD No Pacemaker Rep Required? No Cardiac Clearance Received No Gastrointestinal Symptoms Reflux Bladder Pattern Frequency,Urgency Urinary Catheter Present No Hx Urinary Self Catheterization No Diabetes No Received a COVID vaccine? Yes Marital Status Single Patient Discharge Plan Description Return Home Advance Directives? Yes
[2023-11-11] MEDS: LOSARTAN 50 MG TABLET PO (09:20)
[2023-11-11] MEDS: PANTOPRAZOLE DR 20 MG TABLET PO (09:20)
[2023-11-11] MEDS: ACETAMINOPHEN 325 MG TABLET 650 MG PO (09:20)
[2023-11-11] MEDS: OXYBUTYNIN 5 MG TABLET PO (10:32)
[2023-11-11] MEDS: PHENAZOPYRIDINE 100 MG TABLET 200 MG PO (10:32)
--- NOTE | 2023-11-11 12:12 | PC.NURSE ---
Discharge: Pt feels ready two go home. Seen by Dr Vega and received d/c instructions. Had an issue with his cath not working and several nurses tried to irrigate w/out success. One nurse was able to get sm clot disladged and by then Dr Vega was here and reviewed the current arrangement. He was finally satisfied and said pt could leave. Discharge packet given and reveiwed. Questions answered. Supplies given. Pt d/c to home via auto w/SO.
== END 2023-11-11 11:00 | disposition home or self-care (01) ==
LOC: OR 07:08 → AC 12:58
PROVIDERS: Family Provider Family Medicine; PCP Family Medicine; Referring Provider Urology; Visit Provider Urology
PROC: 0VT08ZZ Resection of Prostate, Via Natural or Artificial Opening Endoscopic (ICD-10-PCS; CPT 0421T; principal; 2023-11-10 09:15)
DX: N40.1 Benign prostatic hyperplasia with lower urinary tract symptoms (principal); N32.0 Bladder-neck obstruction; R35.1 Nocturia; R33.9 Retention of urine, unspecified; R39.198 Other difficulties with micturition
CPT/HCPCS: 0421T; C2596; J0136; J0690; J1100; J2405; J2704; J3010

== ENCOUNTER → 2023-11-12 14:52 | Outpatient (CLI) | payer OTHER, SELFPAY ==
[2023-11-10 14:06] VITALS: BMI 22.9
== END ==
PROVIDERS: Family Provider Family Medicine; PCP Family Medicine; Visit Provider Urology
DX: R39.198 Other difficulties with micturition (principal); N40.1 Benign prostatic hyperplasia with lower urinary tract symptoms
CPT/HCPCS: 87086

== ENCOUNTER → 2023-11-13 09:04 | Outpatient (CLI) | payer OTHER, SELFPAY ==
[2023-11-10 14:06] VITALS: BMI 22.9
== END ==
PROVIDERS: Family Provider Family Medicine; PCP Family Medicine; Visit Provider Urology
DX: R39.9 Unspecified symptoms and signs involving the genitourinary system (principal)
CPT/HCPCS: 87086

== ENCOUNTER 2023-11-15 20:24 | Emergency (ER) | payer OTHER, SELFPAY ==
[2023-11-10 14:06] VITALS: BMI 22.9
[2023-11-15 20:39] VITALS: BP 189/91; PULSE 92; RESP 16; TEMP 37; O2SAT 98; BMI 22.9
[2023-11-15 21:13] LABS: Appearance Urine UA CLOUDY
[2023-11-15 21:23] LABS: Color Urine UA ORANGE
[2023-11-15 21:24] LABS: Bacteria Urine Moderate (10-30); Culture Indicated Urine Specimen Cultured; RBC Urine >100/HPF (0-5/HPF); Squamous Epithelial Cell Urine 0-1 /HPF (0-5/HPF); Urine Volume 6; WBC Urine 10-30/HPF (0-5/HPF)
--- NOTE | 2023-11-15 21:31 | ED_ITS ---
HPI - Male Genitourinary General Chief complaint: Abdominal Pain Stated complaint: pelvic pain, prostate surgery 3 days ago Time Seen by Provider: 11/15/23 20:38 Source: patient Mode of arrival: Ambulatory History of Present Illness HPI Narrative: 83-year-old male status post recent prostate surgery by the local urologist Dr. Vega last week, had postoperative urinary catheter in place that was removed, the catheter was replaced in the office of Dr. Vega 3 days ago, has remained in place, now with increasing suprapubic area discomfort, there is drainage from the urinary catheter, not particularly bloody. No pulling of the catheter other local trauma known. He does not have fevers or chills. Denies flank pain back pain symptoms. No nausea or vomiting. He has not currently on any antibacterials. Related Data Home Medications Medication Instructions Recorded Confirmed omeprazole 20 mg capsule,delayed 20 mg PO BID 11/10/23 11/13/23 release Previous Rx's Medication Instructions Recorded pravastatin 20 mg tablet 20 mg PO BEDTIME #90 tabs 09/08/23 losartan 50 mg tablet 50 mg PO DAILY #30 tabs 10/30/23 oxybutynin chloride 5 mg tablet 5 mg PO BID-TID PRN bladder spasms 11/11/23 #7 tabs phenazopyridine 200 mg tablet 200 mg PO QPC PRN pain 6 doses #6 11/11/23 (Pyridium) tabs cefdinir 300 mg capsule 300 mg PO BID 7 days #14 caps 11/15/23 Allergies Allergy/AdvReac Type Severity Reaction Status Date / Time No Known Drug Allergies Allergy Verified 11/15/23 20:41 Review of Systems Review of Systems Narrative: see HPI Patient History Medical History Hesitancy Slow urinary stream Nocturia Benign prostatic hyperplasia with lower urinary tract symptoms Allergic dermatitis Chest discomfort Lumbar degenerative disc disease Lumbar spondylosis Lumbar radiculopathy Incomplete emptying of bladder Lower urinary tract symptoms History of prostatitis Atrophic testicle Skin lesion of left upper extremity Elevated PSA BPH (benign prostatic hyperplasia) Hypertension GERD (gastroesophageal reflux disease) High cholesterol Surgical History History of hip surgery (2014) History of esophagogastroduodenoscopy (EGD) (06/15/23) Hx of appendectomy (1955) Social History marital status: unmarried,single number of children: 2 household members: spouse occupational status: other Smoking Status: Former smoker alcohol intake: former caffeine: Yes Type(s) of exercise: walking and bicycling frequency: 3-4 times per week Smoking Status: Former smoker alcohol intake frequency: holidays/special occasions only Substance Use Type: marijuana Exam Narrative Exam Narrative: GENERAL: Well-developed patient, in mild distress. HEAD: Atraumatic. Normocephalic. EYES: Pupils equal round and reactive. Extraocular motions intact. No scleral icterus. No injection or drainage. ENT: Nose without bleeding, purulent drainage. Throat without erythema, tonsillar hypertrophy or exudate. Airway patent. NECK: Trachea midline. Non tender CARDIOVASCULAR: Regular rate and rhythm without murmurs, gallops, or rubs. RESPIRATORY: Clear to auscultation. Breath sounds equal bilaterally. No wheezes, rales, or rhonchi. GASTROINTESTINAL: Abdomen soft, non-tender, nondistended. Genitourinary: Circumcised normal male genitalia, Hutchinson catheter in place, no leaking of fluid around the end of of the meatal orifice, physician of secured Hutchinson catheter device unremarkable. No scrotal asymmetry or obvious skin lesions. EXTREMITIES: No edema or joint tenderness. BACK: Nontender without deformity or crepitance. No flank tenderness. NEURO: AOx3. Motor functions grossly nonfocal SKIN: No rash or erythema of visible areas Initial Vital Signs Initial Vital Signs: Vital Signs Temperature 98.6 F 11/15/23 20:39 Pulse Rate 92 H 11/15/23 20:39 Respiratory Rate 16 11/15/23 20:39 Blood Pressure 189/91 H 11/15/23 20:39 Pulse Oximetry 98 11/15/23 20:39 Oxygen Delivery Method Room Air 11/15/23 20:39 Course Orders Ordered: ED Orders 11/15/23 21:07 Urinalysis and Microscopic Stat Urine Culture Stat Discontinued Medications Acetaminophen (Acetaminophen 325 Mg Tablet) 650 mg PO Q6H PRN PRN Reason: Fever/Mild Pain (1-3) Last Admin: 11/15/23 21:58 Dose: 650 mg Documented By: Cefdinir (Cefdinir 300 Mg Capsule) 300 mg PO NOW ONE Stop: 11/15/23 21:28 Last Admin: 11/15/23 21:59 Dose: 300 mg Documented By: Phenazopyridine HCl (Phenazopyridine 100 Mg Tablet) 200 mg PO NOW ONE Stop: 11/15/23 21:43 Last Admin: 11/15/23 21:51 Dose: Not Given Documented By: Tramadol HCl (Tramadol 50 Mg Tablet) 50 mg PO NOW ONE Stop: 11/15/23 21:52 Last Admin: 11/15/23 21:59 Dose: 50 mg Documented By: Tramadol HCl (Tramadol 50 Mg Prepack) 1 bottle MISC DIRECTED ONE Stop: 11/15/23 21:53 Last Admin: 11/15/23 22:00 Dose: 1 bottle Documented By: Vital Signs Vital signs: Vital Signs - 8 hr 11/15/23 20:39 11/15/23 22:36 Temperature 98.6 F 98.2 F Pulse Rate 92 H 65 Respiratory Rate 16 18 Blood Pressure 189/91 H 185/99 H Pulse Oximetry 98 98 Oxygen Delivery Method Room Air Room Air MDM - Male Genitourinary Lab Data Attestation: I reviewed the patient's lab results. Lab results narrative: Urinalysis suspicious for infection, urine culture requested Labs: Lab Results 11/15/23 Range/Units 21:07 Urine Color [place] Urine Appearance Cloudy Urine pH TNP Ur Specific [place] TNP Urine Protein TNP Urine Glucose (UA) TNP Urine Ketones TNP Urine Occult Blood TNP Urine Nitrate TNP Urine Bilirubin TNP Urine Urobilinogen TNP Ur Leukocyte Esterase TNP Urine RBC >100/hpf H (0-5/HPF) Urine WBC 10-30/hpf H (0-5/HPF) Ur Squamous Epith Cells 0-1 /hpf (0-5/HPF) Urine Bacteria Moderate (10-30) H (None) Ur Culture Indicated? Specimen cultured Vol Urine Centrifuged 6 MDM Narrative Medical decision making narrative: 83-year-old male status post recent prostate surgery, postoperative urinary catheter was removed, but replaced in urology office 3 days ago, with increasing pelvic discomfort. Urinalysis suspicious for infection. Currently patient is not on any antimicrobials. Elderly patient, we will avoid fluoroquinolones for now, 1st dose oral cefdinir antibiotic in the emergency department, urine culture was requested, further prescription cefdinir to be sent to pharmacy. No gross hematuria in Hutchinson bag. No urinary distention from bladder scanning. Bladder scan showed volume 60s only, no flushing or catheter replacement seems indicated at this time. He is due for Urology follow up appointment tomorrow Thursday with Dr. Vega. He is taking Pyridium and Tylenol, like additional pain relief, oral tramadol dose, home pack tramadol dose. Follow up tomorrow Thursday with Urology as planned. Return precautions discussed. Leave Hutchinson catheter in place for now pending urology appointment tomorrow. Home with family. Discharge Plan Departure Patient Disposition: Home Clinical Impression: Urinary tract infection Activity Restrictions/Additional Instructions: Recent prostate surgery, status post removal of postoperative Hutchinson catheter, which was replaced 3 days ago in urology clinic by Dr. Vega. Pelvic discomfort. Urinalysis tonight shows bacteria and inflammatory cells, urine culture was requested, suspicious for urinary tract infection. First dose oral antibiotic given in the emergency department, prescription sent to your pharmacy for further antibiotic course. No obvious Hutchinson catheter problem, we will leave in place, seems to be draining, no increased volume of the urinary bladder. Follow up tomorrow as planned with your urologist Dr. Vega, who can talk with you about Hutchinson catheter removal at that time if indicated. Take antibiotics as prescribed. Take pain medications as needed. You have been using Pyridium in Tylenol. Tramadol dose given in the emergency department, with home pack to use if needed overnight until further evaluation. Follow up with Urology as planned. Return earlier to this/nearest emergency department for any change worsening symptoms or any concerns prior Prescriptions: New cefdinir 300 mg capsule 300 mg PO BID 7 Days Qty: 14 0RF No Action pravastatin 20 mg tablet 20 mg PO BEDTIME Qty: 90 2RF losartan 50 mg tablet 50 mg PO DAILY Qty: 30 1RF omeprazole 20 mg capsule,delayed release(DR/EC) 20 mg PO BID phenazopyridine [Pyridium] 200 mg tablet 200 mg PO QPC PRN (Reason: pain) Qty: 6 0RF oxybutynin chloride 5 mg tablet 5 mg PO BID-TID PRN (Reason: bladder spasms) Qty: 7 0RF Referrals: Randal Olvera DO [Primary Care Provider] - Omar Vega MD [Physician] - Stand Alone Forms: Patient Portal/API
[2023-11-15] MEDS: ACETAMINOPHEN 325 MG TABLET 650 MG PO (21:58)
[2023-11-15] MEDS: CEFDINIR 300 MG CAPSULE PO (21:59)
[2023-11-15] MEDS: TRAMADOL 50 MG TABLET PO (21:59)
[2023-11-15] MEDS: TRAMADOL 50 MG PREPACK 1 BOTTLE MISC (22:00)
[2023-11-15 22:36] VITALS: BP 185/99; PULSE 65; RESP 18; TEMP 36.8; O2SAT 98
== END 2023-11-15 22:36 | disposition home or self-care (01) ==
PROVIDERS: Emergency Provider Emergency Medicine; Family Provider Family Medicine; PCP Family Medicine
DX: N39.0 Urinary tract infection, site not specified (principal); Z98.890 Other specified postprocedural states
CPT/HCPCS: 51798; 81001; 87086; 99283

== ENCOUNTER → 2023-11-16 14:20 | Outpatient (CLI) | payer OTHER, SELFPAY ==
[2023-11-10 14:06] VITALS: BMI 22.9
== END ==
PROVIDERS: Family Provider Family Medicine; PCP Family Medicine; Visit Provider Urology
DX: N39.0 Urinary tract infection, site not specified (principal)
CPT/HCPCS: 87086

== ENCOUNTER → 2023-11-17 08:42 | Outpatient (CLI) | payer OTHER, SELFPAY ==
[2023-11-10 14:06] VITALS: BMI 22.9
== END ==
PROVIDERS: Family Provider Family Medicine; PCP Family Medicine; Visit Provider Urology
DX: N39.0 Urinary tract infection, site not specified (principal); R39.9 Unspecified symptoms and signs involving the genitourinary system
CPT/HCPCS: 87086

== ENCOUNTER → 2023-11-26 08:41 | Outpatient (CLI) | payer OTHER, SELFPAY ==
[2023-11-10 14:06] VITALS: BMI 22.9
== END ==
PROVIDERS: Family Provider Family Medicine; PCP Family Medicine; Referring Provider Urology; Visit Provider Urology
DX: N39.0 Urinary tract infection, site not specified (principal)
CPT/HCPCS: 87086

== ENCOUNTER 2023-12-05 01:14 | Emergency (ER) | payer OTHER, SELFPAY ==
[2023-11-10 14:06] VITALS: BMI 22.9
[2023-12-05 01:21] VITALS: BP 179/84; PULSE 61; RESP 16; TEMP 36.4; O2SAT 99; BMI 22.9
[2023-12-05 01:24] VITALS: PULSE 57; O2SAT 99
[2023-12-05 01:30] VITALS: BP 177/97; PULSE 59; O2SAT 100
--- NOTE | 2023-12-05 01:34 | ED_ITS ---
HPI - General Adult General Chief complaint: Hypertension Stated complaint: back pain Time Seen by Provider: 12/05/23 01:21 Source: patient and EMS Mode of arrival: EMS History of Present Illness HPI narrative: Patient is an 83-year-old male who has a history of high blood pressure who comes in the emergency department by EMS for evaluation of what he states was a period of time when he was woken up from his sleep. He states he was not having any back pain he was just having tingling from across the top of the shoulders down to his waist band. The symptoms are now completely gone. He did not have pain. He denies chest pain or shortness of breath or abdominal pain or fevers or headache. He did take his blood pressure medicines yesterday. He took his blood pressure because he was not feeling well and found it in the 160-170 systolic range what is what brought him into Related Data Home Medications Medication Instructions Recorded Confirmed omeprazole 20 mg capsule,delayed 20 mg PO BID 11/10/23 11/26/23 release tramadol 50 mg tablet 50 mg PO BID PRN 11/16/23 11/26/23 Previous Rx's Medication Instructions Recorded pravastatin 20 mg tablet 20 mg PO BEDTIME #90 tabs 09/08/23 losartan 50 mg tablet 50 mg PO DAILY #30 tabs 10/30/23 Allergies Allergy/AdvReac Type Severity Reaction Status Date / Time No Known Drug Allergies Allergy Verified 11/26/23 08:42 Review of Systems Review of Systems ROS Unobtainable: All systems reviewed & are unremarkable except as noted in HPI and below Patient History Medical History Hesitancy Slow urinary stream Nocturia Benign prostatic hyperplasia with lower urinary tract symptoms Allergic dermatitis Chest discomfort Lumbar degenerative disc disease Lumbar spondylosis Lumbar radiculopathy Incomplete emptying of bladder Lower urinary tract symptoms History of prostatitis Atrophic testicle Skin lesion of left upper extremity Elevated PSA BPH (benign prostatic hyperplasia) Hypertension GERD (gastroesophageal reflux disease) High cholesterol Surgical History History of hip surgery (2014) History of esophagogastroduodenoscopy (EGD) (06/15/23) Hx of appendectomy (1954) Social History marital status: unmarried,single number of children: 2 household members: spouse occupational status: other Smoking Status: Former smoker alcohol intake: former caffeine: Yes Type(s) of exercise: walking and bicycling frequency: 3-4 times per week Smoking Status: Former smoker alcohol intake frequency: holidays/special occasions only Substance Use Type: marijuana Exam Initial Vital Signs Initial Vital Signs: Vital Signs Temperature 97.5 F L 12/05/23 01:21 Pulse Rate 61 12/05/23 01:21 Respiratory Rate 16 12/05/23 01:21 Blood Pressure 179/84 H 12/05/23 01:21 Pulse Oximetry 99 12/05/23 01:21 Oxygen Delivery Method Room Air 12/05/23 01:21 Const General: cooperative, comfortable and No ill appearing HENMT Head: normal to inspection and normocephalic Resp Effort & Inspection: normal respiratory effort Auscultation: clear to auscultation bilaterally Cardio Rate: regular rate Rhythm: regular rhythm Skin General: no rashes or lesions noted Neuro General: patient alert, patient awake and moves all extremities Extrem General: capillary refill normal Course Orders Ordered: ED Orders 12/05/23 01:24 Complete Blood Count AUTO DIFF Stat Comprehensive Metabolic Panel Stat Lipase Stat Troponin & CK Cardiac Panel Stat 12/05/23 01:35 XR chest 1V Stat 12/05/23 01:36 EKG-12 Lead Stat Vital Signs Vital signs: Vital Signs - 8 hr 12/05/23 01:21 12/05/23 01:24 12/05/23 01:30 Temperature 97.5 F L Pulse Rate 61 57 L 59 L Respiratory Rate 16 Blood Pressure 179/84 H Pulse Oximetry 99 99 100 Oxygen Delivery Method Room Air 12/05/23 01:30 12/05/23 02:00 12/05/23 02:00 Temperature Pulse Rate 57 L Respiratory Rate 14 Blood Pressure 177/97 H 167/78 H Pulse Oximetry 98 Oxygen Delivery Method Room Air Medical Decision Making Lab Data Lab results reviewed: Yes I reviewed the patient's lab results. 12/05/23 01:24 12/05/23 01:24 Labs: Lab Results 12/05/23 Range/Units 01:24 WBC 4.4 L (4.5-11.0) X10^3/uL RBC 4.20 L (4.5-5.9) X10^6/uL Hgb 13.3 L (13.5-17.5) g/dL Hct 38.9 L (41-53) % MCV 92.5 (80-100) fL MCH 31.7 (26-34) PG MCHC 34.3 (30-36) % RDW 13.3 (11.6-14.8) % Plt Count 282 (150-400) X10^3/uL Neut % (Auto) 41.3 L (50-75) % Lymph % (Auto) 42.2 H (25-40) % [place] % (Auto) 12.6 (3-14) % Eos % (Auto) 2.9 (2-4) % Baso % (Auto) 1.0 (0-2) % Neut # (Auto) 1800 (7048-7954) /uL Lymph # (Auto) 1900 (4911-6310) /uL [place] # (Auto) 600 (0-900) /uL Eos # (Auto) 100 (0-450) /uL Baso # (Auto) 0 (0-100) /uL Sodium 132 L (137-145) mmol/L Potassium 4.2 (3.4-5.1) mmol/L Chloride 100 (98-107) mmol/L Carbon Dioxide 29 (22-32) mmol/L BUN 12 (9-20) mg/dL Creatinine 0.84 (0.66-1.25) mg/dL Estimated GFR > 60 (>60) mL/min BUN/Creatinine Ratio 14.3 (6-22) Glucose 110 (80-110) mg/dL Calcium 8.8 (8.4-10.2) mg/dL Total Bilirubin 0.4 (0.2-1.3) mg/dL AST 22 (17-59) IU/L ALT 20 (<50) IU/L Alkaline Phosphatase 67 (38-126) U/L Total Creatine Kinase 54 L (55-170) U/L Troponin I < 0.012 (0.01-0.034) ng/mL Total Protein 6.9 (6.3-8.2) g/dL Albumin 3.7 (3.5-5.0) g/dL Globulin 3.2 (1.7-4.1) g/dL Albumin/Globulin Ratio 1.2 (1.0-2.8) Lipase 65 (23-300) U/L Imaging Data Chest x-ray: Radiologist's Impression: PROCEDURE: XR CHEST 1V INDICATIONS: Hypertension and back pain TECHNIQUE: One view of the chest was acquired. COMPARISON: [facility], CR, XR CHEST 2V, 03/12/2023, 12:57. [facility], CR, XR CHEST 1V, 10/30/2020, 8:57. FINDINGS: Surgical changes and devices: None. Lungs and pleura: Lungs are clear. No pleural effusions or pneumothorax. Mediastinum: Mediastinal contours appear normal. Heart size is normal. Bones and chest wall: No suspicious bony lesions. Overlying soft tissues appear unremarkable. IMPRESSION: No acute cardiopulmonary abnormality is seen. ECG Data Attestation: I personally reviewed and interpreted this ECG as follows: Interpretation: Sinus [place] Ventricular rate of 54 First-degree block [place] interval of 2 and 2 milliseconds Normal QRS Normal QTC No ST T wave changes MDM Narrative Medical decision making narrative: EKG and chest x-ray unremarkable. Electrolytes are unremarkable. He was no skin changes over his back that would make me think an allergic reaction. Given his high blood pressure and back pain I did think of other etiology such as aortic dissection or aneurysm however he was not having any pain but he describes it as a tingling sensation in his back. No fevers. He was not in heart failure. Not in renal failure. We did discuss the lack of a definitive diagnosis but I recommended that he contact his primary doctor for follow-up. Expressed understanding and agreement. Discharge Plan Departure Patient Disposition: Home Clinical Impression: Hypertension Instructions: DI for High Blood Pressure Activity Restrictions/Additional Instructions: Recommend that you continue to take all of your medications as directed. Continue to take your blood pressure at home record the results of that you can talk with the primary doctor about potentially any changes to medications that you may need. Return to the emergency department for new symptoms. Prescriptions: No Action pravastatin 20 mg tablet 20 mg PO BEDTIME Qty: 90 2RF losartan 50 mg tablet 50 mg PO DAILY Qty: 30 1RF omeprazole 20 mg capsule,delayed release(DR/EC) 20 mg PO BID tramadol 50 mg tablet 50 mg PO BID PRN Referrals: Randal Olvera DO [Primary Care Provider] - Stand Alone Forms: Patient Portal/API
--- NOTE | 2023-12-05 01:35 | DI.RAD.S_ITS ---
PROCEDURE: XR CHEST 1V INDICATIONS: Hypertension and back pain TECHNIQUE: One view of the chest was acquired. COMPARISON: [facility], CR, XR CHEST 2V, 03/12/2023, 12:57. [facility], CR, XR CHEST 1V, 10/30/2020, 8:57. FINDINGS: Surgical changes and devices: None. Lungs and pleura: Lungs are clear. No pleural effusions or pneumothorax. Mediastinum: Mediastinal contours appear normal. Heart size is normal. Bones and chest wall: No suspicious bony lesions. Overlying soft tissues appear unremarkable. IMPRESSION: No acute cardiopulmonary abnormality is seen. Dictated by: Christian Peterson M.D. on 12/05/2023 at 1:44 Approved by: Christian Peterson M.D. on 12/05/2023 at 1:44
[2023-12-05 01:41] LABS: Add Manual Diff / Slide Review NO; Basophils Absolute Auto 0 /uL (0-100); Eosinophils Absolute Auto 100 /uL (0-450); Eosinophils Percent Auto 2.9 % (2-4); Hematocrit 38.9 % (41-53); Hemoglobin 13.3 g/dL (13.5-17.5); Lymphocytes Absolute Auto 1900 /uL (1100-4500); Lymphocytes Percent Auto 42.2 % (25-40); Mean Corpuscular HGB Conc 34.3 % (30-36); Mean Corpuscular Hemoglobin 31.7 PG (26-34); Mean Corpuscular Volume 92.5 fL (80-100); Monocytes Absolute Auto 600 /uL (0-900); Monocytes Percent Auto 12.6 % (3-14); Neutrophils Absolute Auto 1800 /uL (1500-7000); Neutrophils Percent Auto 41.3 % (50-75); Platelet Count 282 X10^3/uL (150-400); Red Cell Distribution Width 13.3 % (11.6-14.8); White Blood Cell Count 4.4 X10^3/uL (4.5-11.0)
--- NOTE | 2023-12-05 01:42 | EKG_ITS ---
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
[2023-12-05 01:51] LABS: Alanine Aminotransferase 20 IU/L (<50); Albumin 3.7 g/dL (3.5-5.0); Albumin Globulin Ratio 1.2 (1.0-2.8); Alkaline Phosphatase 67 U/L (38-126); Aspartate Aminotransferase 22 IU/L (17-59); BUN Creatinine Ratio 14.3 (6-22); Bilirubin Total 0.4 mg/dL (0.2-1.3); Blood Urea Nitrogen 12 mg/dL (9-20); Calcium 8.8 mg/dL (8.4-10.2); Carbon Dioxide 29 mmol/L (22-32); Chloride 100 mmol/L (98-107); Creatine Kinase 54 U/L (55-170); Estimated Glomerular Filt Rate > 60 mL/min (>60); Globulin 3.2 g/dL (1.7-4.1); Glucose 110 mg/dL (80-110); HEMOLYSIS < 15 (0-50); Lipase 65 U/L (23-300); Potassium 4.2 mmol/L (3.4-5.1); Sodium 132 mmol/L (137-145); Total Protein 6.9 g/dL (6.3-8.2)
[2023-12-05 02:00] VITALS: BP 167/78; PULSE 57; RESP 14; O2SAT 98
[2023-12-05 02:02] LABS: Troponin I < 0.012 ng/mL (0.01-0.034)
[2023-12-05 02:30] VITALS: BP 177/84; PULSE 59; RESP 18; O2SAT 98
== END 2023-12-05 02:55 | disposition home or self-care (01) ==
PROVIDERS: Emergency Provider Emergency Medicine; Family Provider Family Medicine; PCP Family Medicine
DX: I10 Essential (primary) hypertension (principal); M54.9 Dorsalgia, unspecified; R00.1 Bradycardia, unspecified; I44.0 Atrioventricular block, first degree
CPT/HCPCS: 36415; 71045; 80053; 82550; 83690; 84484; 85025; 93005; 93010; 99283; 99284

== ENCOUNTER → 2023-12-07 12:57 | Outpatient (CLI) | payer OTHER, SELFPAY ==
[2023-11-10 14:06] VITALS: BMI 22.9
[2023-12-07 13:34] LABS: Appearance Urine UA CLEAR; Bilirubin Urine UA NEGATIVE (NEGATIVE); Color Urine UA YELLOW; Glucose Urine UA NEGATIVE (Negative); Ketones Urine UA NEGATIVE (NEGATIVE); Leukocyte Esterase Urine UA 2+ (NEGATIVE); Nitrite Urine UA NEGATIVE (Negative); Occult Blood Urine UA 2+ (Negative); Protein Urine UA 1+ (Negative)
[2023-12-07 13:56] LABS: Amorphous Sediment Urine 1+; Bacteria Urine Few (2-10); Culture Indicated Urine Specimen Cultured; RBC Urine 5-10/HPF (0-5/HPF); Squamous Epithelial Cell Urine 0-1 /HPF (0-5/HPF); Urine Volume 10mL (spun); WBC Urine 10-30/HPF (0-5/HPF)
== END ==
PROVIDERS: Family Provider Family Medicine; PCP Family Medicine; Referring Provider Urology; Visit Provider Urology
DX: R39.9 Unspecified symptoms and signs involving the genitourinary system (principal)
CPT/HCPCS: 81001; 87086

== ENCOUNTER → 2023-12-14 14:10 | Outpatient (CLI) | payer OTHER, SELFPAY ==
[2023-11-10 14:06] VITALS: BMI 22.9
== END ==
PROVIDERS: Family Provider Family Medicine; PCP Family Medicine; Visit Provider Urology
DX: R39.9 Unspecified symptoms and signs involving the genitourinary system (principal)
CPT/HCPCS: 87086

== ENCOUNTER → 2023-12-30 14:38 | Outpatient (CLI) | payer OTHER, SELFPAY ==
[2023-11-10 14:06] VITALS: BMI 22.9
== END ==
PROVIDERS: Family Provider Family Medicine; PCP Family Medicine; Visit Provider Urology
DX: N99.115 Postprocedural fossa navicularis urethral stricture (principal); N40.1 Benign prostatic hyperplasia with lower urinary tract symptoms; R35.1 Nocturia; R39.9 Unspecified symptoms and signs involving the genitourinary system; Z87.438 Personal history of other diseases of male genital organs
CPT/HCPCS: 51798; 81002; 87086

== ENCOUNTER → 2024-04-12 15:59 | Outpatient (CLI) | payer OTHER, SELFPAY ==
[2023-11-10 14:06] VITALS: BMI 22.9
[2024-04-12 17:13] LABS: Add Manual Diff / Slide Review NO; Basophils Absolute Auto 0 /uL (0-100); Basophils Percent Auto 0.4 % (0-2); Eosinophils Absolute Auto 100 /uL (0-450); Eosinophils Percent Auto 1.3 % (2-4); Hematocrit 40.7 % (41-53); Lymphocytes Absolute Auto 1900 /uL (1100-4500); Lymphocytes Percent Auto 37.5 % (25-40); Mean Corpuscular HGB Conc 34.5 % (30-36); Mean Corpuscular Hemoglobin 31.5 PG (26-34); Mean Corpuscular Volume 91.4 fL (80-100); Monocytes Absolute Auto 600 /uL (0-900); Monocytes Percent Auto 11.3 % (3-14); Neutrophils Absolute Auto 2500 /uL (1500-7000); Neutrophils Percent Auto 49.5 % (50-75); Platelet Count 209 X10^3/uL (150-400); Red Blood Cell Count 4.46 X10^6/uL (4.5-5.9); Red Cell Distribution Width 13.9 % (11.6-14.8)
[2024-04-12 17:25] LABS: Alanine Aminotransferase 19 IU/L (<50); Albumin 4.2 g/dL (3.5-5.0); Albumin Globulin Ratio 1.5 (1.0-2.8); Alkaline Phosphatase 63 U/L (38-126); Aspartate Aminotransferase 26 IU/L (17-59); BUN Creatinine Ratio 14.3 (6-22); Bilirubin Total 0.4 mg/dL (0.2-1.3); Blood Urea Nitrogen 16 mg/dL (9-20); Calcium 9.4 mg/dL (8.4-10.2); Carbon Dioxide 31 mmol/L (22-32); Chloride 100 mmol/L (98-107); Estimated Glomerular Filt Rate > 60 mL/min (>60); Globulin 2.8 g/dL (1.7-4.1); Glucose 95 mg/dL (80-110); HEMOLYSIS < 15 (0-50); Potassium 4.8 mmol/L (3.4-5.1); Sodium 137 mmol/L (137-145)
== END ==
LOC: LAB 16:00
PROVIDERS: Family Provider Family Medicine; PCP Family Medicine; Referring Provider Family Medicine; Visit Provider Family Medicine
DX: I10 Essential (primary) hypertension (principal); K21.9 Gastro-esophageal reflux disease without esophagitis
CPT/HCPCS: 36415; 80053; 85025

== ENCOUNTER → 2024-04-13 12:15 | Outpatient (CLI) | payer OTHER, SELFPAY ==
[2023-11-10 14:06] VITALS: BMI 22.9
[2024-04-18 19:38] LABS: H. Pylori Antigen Stool Negative (Negative)
== END ==
PROVIDERS: Family Provider Family Medicine; PCP Family Medicine; Referring Provider Family Medicine; Visit Provider Family Medicine
DX: I10 Essential (primary) hypertension (principal); K21.9 Gastro-esophageal reflux disease without esophagitis
CPT/HCPCS: 87338

== ENCOUNTER → 2024-08-10 13:36 | Outpatient (CLI) | payer OTHER, SELFPAY ==
[2024-07-28 10:32] VITALS: BMI 22.9
== END ==
PROVIDERS: Family Provider Family Medicine; PCP Family Medicine; Referring Provider Urology; Visit Provider Urology
DX: R97.20 Elevated prostate specific antigen [PSA] (principal)
CPT/HCPCS: 36415; 84153; 84154

== ENCOUNTER → 2024-09-05 16:03 | Outpatient (CLI) | payer OTHER, SELFPAY ==
[2024-07-28 10:32] VITALS: BMI 22.9
[2024-09-05 16:38] LABS: Appearance Urine UA CLEAR; Bilirubin Urine UA NEGATIVE (NEGATIVE); Color Urine UA YELLOW; Glucose Urine UA NEGATIVE (Negative); Ketones Urine UA NEGATIVE (NEGATIVE); Leukocyte Esterase Urine UA NEGATIVE (NEGATIVE); Nitrite Urine UA NEGATIVE (Negative); Occult Blood Urine UA NEGATIVE (Negative); Protein Urine UA NEGATIVE (Negative); Specific Gravity Urine UA 1.010 (1.000-1.035); Urobilinogen Urine UA 1.0 E.U./dL (0.2); pH Urine UA 6.0 (4.5-8.0)
[2024-09-05 16:45] LABS: Culture Indicated Urine Cult Not Indicated
[2024-09-05 17:45] LABS: Alanine Aminotransferase 19 IU/L (<50); Albumin 4.2 g/dL (3.5-5.0); Albumin Globulin Ratio 1.6 (1.0-2.8); Alkaline Phosphatase 69 U/L (38-126); Blood Urea Nitrogen 16 mg/dL (9-20); Calcium 9.5 mg/dL (8.4-10.2); Carbon Dioxide 29 mmol/L (22-32); Chloride 100 mmol/L (98-107); Estimated Glomerular Filt Rate > 60 mL/min (>60); Globulin 2.7 g/dL (1.7-4.1); Glucose 80 mg/dL (70-99); HEMOLYSIS < 15 (0-50); Potassium 4.4 mmol/L (3.4-5.1); Sodium 136 mmol/L (137-145); Total Protein 6.9 g/dL (6.3-8.2)
== END ==
PROVIDERS: Family Provider Family Medicine; PCP Family Medicine; Referring Provider Urology; Visit Provider Urology
DX: R30.0 Dysuria (principal)
CPT/HCPCS: 36415; 80053; 81001

== ENCOUNTER 2024-12-17 06:58 | Emergency (ER) | payer OTHER, SELFPAY ==
[2024-07-28 10:32] VITALS: BMI 22.9
[2024-12-17] VITALS (10 sets, daily range): BP systolic 156–200; BP diastolic 79–94; PULSE 56–65; RESP 14–22; TEMP 36.5; O2SAT 97–99; BMI 22.9
--- NOTE | 2024-12-17 07:02 | DI.RAD.S_ITS ---
PROCEDURE: XR CHEST 1V INDICATIONS: Chest Pain TECHNIQUE: One view of the chest was acquired. COMPARISON: [facility], CR, XR CHEST 1V, 12/05/2023, 1:34. [facility], CR, XR CHEST 2V, 03/12/2023, 12:57. FINDINGS: Surgical changes and devices: None. Lungs and pleura: Lungs are clear. No pleural effusions or pneumothorax. Mediastinum: Mediastinal contours appear normal. Heart size is normal. Bones and chest wall: No suspicious bony lesions. Overlying soft tissues appear unremarkable. IMPRESSION: No acute cardiopulmonary abnormality is seen. Dictated by: Christian Peterson M.D. on 12/17/2024 at 7:20 Approved by: Christian Peterson M.D. on 12/17/2024 at 7:20
--- NOTE | 2024-12-17 07:02 | EKG_ITS ---
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
[2024-12-17 07:35] LABS: Add Manual Diff / Slide Review NO; Hematocrit 42.8 % (41-53); Hemoglobin 14.7 g/dL (13.5-17.5); Lymphocytes Absolute Auto 1100 /uL (1100-4500); Mean Corpuscular HGB Conc 34.2 % (30-36); Mean Corpuscular Hemoglobin 31.5 PG (26-34); Mean Corpuscular Volume 91.9 fL (80-100); Platelet Count 192 X10^3/uL (150-400)
[2024-12-17 07:42] LABS: INR 1.0 (0.9-1.3); Prothrombin Time 11.1 SECONDS (9.4-12.5)
[2024-12-17 07:45] LABS: PTT Partial Thromboplastin Tim 33 SECONDS (25.1-36.5)
[2024-12-17 07:48] LABS: Alanine Aminotransferase 24 IU/L (<50); Albumin 4.2 g/dL (3.5-5.0); Albumin Globulin Ratio 1.3 (1.0-2.8); Alkaline Phosphatase 76 U/L (38-126); Blood Urea Nitrogen 13 mg/dL (9-20); Calcium 8.8 mg/dL (8.4-10.2); Carbon Dioxide 27 mmol/L (22-32); Chloride 102 mmol/L (98-107); Creatine Kinase 68 U/L (55-170); Estimated Glomerular Filt Rate > 60 mL/min (>60); Globulin 3.2 g/dL (1.7-4.1); Glucose 112 mg/dL (70-99); HEMOLYSIS 17 (0-50); Lipase 62 U/L (23-300); Magnesium 1.8 mg/dL (1.6-2.3); Potassium 4.5 mmol/L (3.4-5.1); Sodium 136 mmol/L (137-145); Total Protein 7.4 g/dL (6.3-8.2)
[2024-12-17 07:58] LABS: NT-proBNP (BNP-Adult 18+) 40 pg/mL (<450); Troponin I < 0.012 ng/mL (0.01-0.034)
--- NOTE | 2024-12-17 08:40 | ED.CHESTPAIN ---
HPI - Chest Pain General Chief Complaint: Chest Pain Stated Complaint: Dull chest pain-all night Time Seen by Provider: 12/17/24 07:02 Source: patient Mode of arrival: Ambulatory Limitations: no limitations History of Present Illness HPI narrative: Patient is a an 84-year-old male history of hypertension hyperlipidemia, TIA with left carotid endarterectomy presenting today with chest pain. He reports that he has had a constant dull ache last night. It is nonradiating. It actually got worse when he lay down better when he got up and walked around. He is very active rises bike at least 2 to 3 times a week. He has never had any shortness of breath. He has been having some on and off chest pain which is noted in his primary care no in October. He has been referred for outpatient stress test but that is months away and has not actually been scheduled. He is no longer having any chest pain. PCP note 10/28/2024 reports that he has been complaining of some atypical chest pain not with exertion Related Data Home Medications ?Medication ?Instructions ?Recorded ?Confirmed aspirin 81 mg tablet 81 mg PO DAILY 10/28/24 10/28/24 atorvastatin 20 mg tablet 40 mg PO DAILY 10/28/24 cyanocobalamin (vitamin B-12) 50 50 mcg PO BID 10/28/24 10/28/24 mcg tablet zolpidem 10 mg tablet 5 mg PO BEDTIME PRN 10/28/24 10/28/24 Previous Rx's ?Medication ?Instructions ?Recorded sildenafil 100 mg tablet 100 mg PO DAILY PRN sexual 12/24/23 activity #30 tabs losartan 50 mg tablet 50 mg PO DAILY #90 tabs 03/22/24 vonoprazan 20 mg tablet (Voquezna) 20 mg PO DAILY #90 tabs 07/04/24 Allergies Allergy/AdvReac Type Severity Reaction Status Date / Time No Known Drug Allergies Allergy Verified 12/17/24 07:10 Patient History Medical History Atypical chest pain History of TIA (transient ischemic attack) Hyperlipidemia Carotid artery disease Insomnia Erectile dysfunction Medicare annual wellness visit, subsequent Well adult exam 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 urethral stricture Hesitancy Slow urinary stream Nocturia Benign prostatic hyperplasia with lower urinary tract symptoms Allergic dermatitis Chest discomfort Lumbar degenerative disc disease Lumbar spondylosis Lumbar radiculopathy Incomplete emptying of bladder Lower urinary tract symptoms History of prostatitis Atrophic testicle Skin lesion of left upper extremity Elevated PSA BPH (benign prostatic hyperplasia) Hypertension GERD (gastroesophageal reflux disease) High cholesterol Surgical History History of left-sided carotid endarterectomy History of hip surgery (2014) History of esophagogastroduodenoscopy (EGD) (06/15/23) Hx of appendectomy (1954) Social History marital status: unmarried,single number of children: 2 household members: spouse occupational status: other Smoking Status: Never smoker alcohol intake: former caffeine: Yes Type(s) of exercise: walking and bicycling frequency: 3-4 times per week Smoking Status: Never smoker alcohol intake frequency: holidays/special occasions only Exam Initial Vital Signs Initial Vital Signs: Vital Signs Temperature 97.7 F 12/17/24 07:11 Pulse Rate 63 12/17/24 07:11 Respiratory Rate 16 12/17/24 07:11 Blood Pressure 200/94 H 12/17/24 07:11 Pulse Oximetry 98 12/17/24 07:11 Oxygen Delivery Method Room Air 12/17/24 07:11 GENERAL: Alert very pleasant 84-year-old male and in [no acute] distress. HEENT: Head atraumatic,EOMI, pupils reactive, face symmetric, [moist] mucous membranes CARDIOVASCULAR: Regular rate and rhythm without murmurs, rubs or gallops. ABDOMINAL: Abdomen soft nontender nondistended EXTREMITIES: Normal range of motion, no clubbing or edema. Neurovascularly intact NEUROLOGICAL: Alert and oriented x4.Normal gait and speech. Cranial nerves II through XII grossly intact. SKIN: Warm, dry, no laceration, no petechiae, no rashes or lesions. Scores HEART Score Heart Score history: Slightly Suspicious Heart Score EKG: Normal Heart Score Age: > or = 65 years old Heart Score risk factors: > 3 risk factors or hx of atherosclerotic disease Heart Score troponin: < or = to normal limit Heart Score Total: 4 Course Orders Ordered: ED Orders 12/17/24 07:02 XR chest 1V Stat EKG-12 Lead Stat 12/17/24 07:20 Complete Blood Count AUTO DIFF Stat Comprehensive Metabolic Panel Stat Lipase Stat Magnesium Stat NT-proBNP (BNP-Adult 18+) Stat PTT Partial Thromboplastin Rishabh Stat Prothrombin Time INR Stat Troponin & CK Cardiac Panel Stat 12/17/24 09:20 Trop I [Troponin I] Stat Discontinued Medications Aspirin (Aspirin 81 Mg Chew Tab) 324 mg PO NOW ONE Stop: 12/17/24 07:03 Last Admin: 12/17/24 07:31 Dose: Not Given Documented By: CTS Vital Signs Vital signs: Vital Signs - 8 hr 12/17/24 07:11 12/17/24 07:29 12/17/24 07:30 Temperature 97.7 F Pulse Rate 63 65 64 Respiratory Rate 16 19 20 Blood Pressure 200/94 H Pulse Oximetry 98 98 98 Oxygen Delivery Method Room Air 12/17/24 08:00 12/17/24 08:30 12/17/24 08:35 Temperature Pulse Rate 63 61 62 Respiratory Rate 14 18 21 Blood Pressure Pulse Oximetry 99 99 98 Oxygen Delivery Method 12/17/24 08:35 12/17/24 09:00 12/17/24 09:00 Temperature Pulse Rate 61 Respiratory Rate 18 Blood Pressure 156/89 H 166/85 H Pulse Oximetry 99 Oxygen Delivery Method 12/17/24 09:30 12/17/24 09:30 12/17/24 10:00 Temperature Pulse Rate 63 56 L Respiratory Rate 16 18 Blood Pressure 169/79 H Pulse Oximetry 97 98 Oxygen Delivery Method 12/17/24 10:00 12/17/24 10:30 12/17/24 10:30 Temperature Pulse Rate 60 Respiratory Rate 22 Blood Pressure 161/85 H 170/85 H Pulse Oximetry 98 Oxygen Delivery Method MDM - Chest Pain Lab Data 12/17/24 07:20 12/17/24 07:20 Labs: Lab Results 12/17/24 12/17/24 Range/Units 07:20 09:20 WBC 4.2 L (4.5-11.0) X10^3/uL RBC 4.66 (4.5-5.9) X10^6/uL Hgb 14.7 (13.5-17.5) g/dL Hct 42.8 (41-53) % MCV 91.9 (80-100) fL MCH 31.5 (26-34) PG MCHC 34.2 (30-36) % RDW 13.5 (11.6-14.8) % Plt Count 192 (150-400) X10^3/uL Neut % (Auto) 59.0 (50-75) % Lymph % (Auto) 26.7 (25-40) % Milam % (Auto) 11.3 (3-14) % Eos % (Auto) 2.3 (2-4) % Baso % (Auto) 0.7 (0-2) % Neut # (Auto) 2400 (6334-7580) /uL Lymph # (Auto) 1100 (0030-8818) /uL Milam # (Auto) 500 (0-900) /uL Eos # (Auto) 100 (0-450) /uL Baso # (Auto) 0 (0-100) /uL PT 11.1 (9.4-12.5) SECONDS INR 1.0 (0.9-1.3) APTT 33 (25.1-36.5) SECONDS Sodium 136 L (137-145) mmol/L Potassium 4.5 (3.4-5.1) mmol/L Chloride 102 (98-107) mmol/L Carbon Dioxide 27 (22-32) mmol/L BUN 13 (9-20) mg/dL Creatinine 0.87 (0.66-1.25) mg/dL Estimated GFR > 60 (>60) mL/min BUN/Creatinine Ratio 14.9 (6-22) Glucose 112 H (70-99) mg/dL Calcium 8.8 (8.4-10.2) mg/dL Magnesium 1.8 (1.6-2.3) mg/dL Total Bilirubin 0.6 (0.2-1.3) mg/dL AST 30 (17-59) IU/L ALT 24 (<50) IU/L Alkaline Phosphatase 76 (38-126) U/L Total Creatine Kinase 68 (55-170) U/L Troponin I < 0.012 < 0.012 (0.01-0.034) ng/mL NT-Pro-B Natriuret Pep 40 (<450) pg/mL Total Protein 7.4 (6.3-8.2) g/dL Albumin 4.2 (3.5-5.0) g/dL Globulin 3.2 (1.7-4.1) g/dL Albumin/Globulin Ratio 1.3 (1.0-2.8) Lipase 62 (23-300) U/L Imaging Data Chest x-ray: Radiologist's Impression: PROCEDURE: XR CHEST 1V INDICATIONS: Chest Pain TECHNIQUE: One view of the chest was acquired. COMPARISON: [facility], CR, XR CHEST 1V, 12/05/2023, 1:34. [facility], CR, XR CHEST 2V, 03/12/2023, 12:57. FINDINGS: Surgical changes and devices: None. Lungs and pleura: Lungs are clear. No pleural effusions or pneumothorax. Mediastinum: Mediastinal contours appear normal. Heart size is normal. Bones and chest wall: No suspicious bony lesions. Overlying soft tissues appear unremarkable. IMPRESSION: No acute cardiopulmonary abnormality is seen. Dictated by: Christian Peterson M.D. on 12/17/2024 at 7:20 ECG Data Attestation: I personally reviewed and interpreted this ECG as follows: Prior ECG tracings: available for review Interpretation: Normal sinus rhythm rate 65 LA interval 194 QRS [address] changes no T-wave inversions similar prior MDM Narrative Medical decision making narrative: MDM CC: Chest pain Complicating co-morbidities: Hypertension hyperlipidemia TIA carotid endarterectomy Data collected from: Patient Medical records reviewed: PCP note from October reviewed, stress test is ordered not scheduled Differential considered: Coronary syndrome, atypical chest pain pneumonia Exam documented above, pertinent findings include: Alert very well-appearing 84-year-old male nonreproducible chest pain no peripheral edema Lab Test results independently reviewed as above. Pertinent findings: Troponin negative x2 CBC no leukocytosis no anemia CMP no electrolyte abnormalities no ROGER glucose 112 Bilirubin liver enzymes within normal limits lipase 62 Independently reviewed EKG as above Sinus rhythm no ischemia similar to prior Imaging studies independently reviewed: Chest x-ray no acute cardiopulmonary process Consultations: [ ] Treatments: [ ] Re-evaluations: Shared decision with and patient in regards to admission versus discharge home. He has not had any further chest pain. He continues to be able to exercise without stopping. They understand that he has medium risk heart score of 4 definitely needs further testing but would like to go home at this time. Encouraged to return if any worsening or new symptoms emerge. Both verbal understanding from and . Discussion: Patient 84-year-old male presenting today with some atypical chest pain. He actually has chest pain at rest and better with exertion. I am use 2- troponins no ischemia noted on his EKGs. He does have a heart score of 4. Outpatient stress test is pending. Both he and were given strict return precautions. Other blood work is overall reassuring. Low suspicion for aortic dissection or other. He initially was quite hypertensive when it came down quickly without any sort of intervention Discharge Plan Departure Patient Disposition: Home Clinical Impression: Atypical chest pain Instructions: DI for Atypical Chest Pain Activity Restrictions/Additional Instructions: *You have been diagnosed with atypical chest pain *What to do: At this time you do need more testing of your heart. If pain should get any worse or change in nature please return to the emergency department at any time *Continue to take medications as directed Continue aspirin daily and all other medication *Follow up with your primary care provider in 2-3 days or call [phone] \ *Return to ER if you should have increasing chest pain shortness of breath weakness or any new, worsening or concerning symptoms Prescriptions: No Action losartan 50 mg tablet 50 mg PO DAILY Qty: 90 3RF Voquezna 20 mg tablet 20 mg PO DAILY Qty: 90 3RF sildenafil 100 mg tablet 100 mg PO DAILY PRN (Reason: sexual activity) Qty: 30 2RF Rx Instructions: administer 30 minutes to 4 hours before activity cyanocobalamin (vitamin B-12) 50 mcg tablet 50 mcg PO BID aspirin 81 mg tablet 81 mg PO DAILY zolpidem 10 mg tablet 5 mg PO BEDTIME PRN atorvastatin 20 mg tablet 40 mg PO DAILY Referrals: Randal Olvera DO [Primary Care Provider, [facility]] Stand Alone Forms: Patient Portal/API
--- NOTE | 2024-12-17 09:15 | EKG_ITS ---
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
[2024-12-17 10:01] LABS: Troponin I < 0.012 ng/mL (0.01-0.034)
== END 2024-12-17 10:42 | disposition home or self-care (01) ==
PROVIDERS: Emergency Provider Emergency Medicine; Family Provider Family Medicine; PCP Family Medicine
DX: R07.89 Other chest pain (principal); I10 Essential (primary) hypertension; E78.5 Hyperlipidemia, unspecified; Z86.73 Personal history of transient ischemic attack (TIA), and cerebral infarction without residual deficits; Z98.890 Other specified postprocedural states
CPT/HCPCS: 36415; 71045; 80053; 82550; 83690; 83735; 83880; 84484; 85025; 85610; 85730; 93005; 93010; 99283; 99284